=== PATIENT | female | born 1965 | race Caucasian/White ===

== ENCOUNTER 2020-07-26 11:43 | Emergency (ER) | payer OTHER, SELFPAY ==
--- NOTE | ~2020-07-26 | CT_ITS ---
EXAMINATION: CT ABDOMEN AND PELVIS WITHOUT CONTRAST CLINICAL INFORMATION: Right flank pain. Kidney stones. COMPARISON: CT abdomen/pelvis dated 05/09/2018. TECHNIQUE: Multidetector volumetric imaging was performed from the superior aspect of the liver through the pubic symphysis. Sagittal and coronal reformatted images were obtained on the technologist's workstation. This CT examination was performed using dose optimization techniques as appropriate, variously including the following: *Automated exposure control *Adjustment of mA and/or kV according to patient size (this includes techniques or standardized protocols for targeted exams where dose is matched to indication/reason for exam; i.e. extremities or head) *Use of iterative reconstruction technique DLP: 748 mGy-cm FINDINGS: LUNG BASES: The visualized lung bases are unremarkable. LIVER, GALLBLADDER, AND BILIARY TREE: The liver is normal in size and shape. Parenchymal hypoattenuation, consistent with steatosis. Mild fatty sparing adjacent to the gallbladder fossa. No focal hepatic lesion or biliary ductal dilatation is present. The gallbladder is unremarkable with no evidence of radiopaque gallstones, gallbladder wall thickening, or obvious pericholecystic inflammatory changes. PANCREAS: Unremarkable. SPLEEN: Unremarkable. ADRENAL GLANDS: Unremarkable. KIDNEYS AND URETERS: The kidneys are normal in size, shape, and attenuation. There is mild right-sided hydroureteronephrosis with minimal periureteral stranding. No right-sided renal or ureteral stone is identified. There is a stable phlebolith within the right pelvis adjacent to the right ureter distally. Findings may indicate a recently passed renal stone. No left-sided hydronephrosis or hydroureter. No left-sided renal or ureteral stone. BLADDER: Unremarkable. No associated calcification. No soft tissue mass or associated inflammatory change. GASTROINTESTINAL TRACT: Colonic diverticulosis. Circumferential wall thickening of the rectosigmoid junction within the posterior central pelvis with mild adjacent fat stranding, consistent with acute diverticulitis. No evidence of perforation or abscess formation. No small- or large-bowel obstruction. Unremarkable appendix. PERITONEAL CAVITY: No intra-abdominal free air or free fluid. No intra-abdominal mass or organized fluid collection/abscess formation. ABDOMINAL WALL: No significant hernia is appreciated. LYMPH NODES: No significant lymphadenopathy. VASCULAR: No abdominal aortic dilatation. Scattered atherosclerotic calcifications. Unremarkable IVC. PELVIC VISCERA: The uterus and adnexa are unremarkable. OSSEOUS STRUCTURES: Unremarkable. CT/CT abdomen pelvis wo con IMPRESSION: 1. Colonic diverticulosis with evidence of acute diverticulitis within the posterior central pelvis. Associated bowel wall thickening and mild adjacent inflammatory change. No evidence of perforation or abscess formation. 2. Mild right-sided hydroureteronephrosis with minimal periureteral stranding. No right-sided renal or ureteral stone. No urinary bladder stone. Findings may indicate a recently passed right-sided renal stone. No left-sided hydronephrosis or nephrolithiasis. 3. Hepatic steatosis.
[2020-07-26 11:53] VITALS: BP 200/73; PULSE 81; RESP 18; TEMP 37.1; O2SAT 97; BMI 31.3
[2020-07-26] MEDS: 0.9 % Sodium Chloride 1,000 ML 999 ML IVCONT (13:03)
[2020-07-26 13:09] LABS: MANUAL DIFF FLAG NO
[2020-07-26 13:10] LABS: Basophils Percent Auto 0.2 % (0-2); Eosinophils Absolute Auto 0.1 X10*3/uL (0.0-0.4); Eosinophils Percent Auto 0.9 % (0-4); Hematocrit 40.8 % (37-47); Hemoglobin 13.7 g/dl (12.0-16.0); Imm Gran Abs Auto 0.05 X10*3/uL (0.00-0.03); Imm Gran Pct Auto 0.3 % (0.0-0.4); Lymphocytes Absolute Auto 1.2 X10*3/uL (1.2-4.9); Lymphocytes Percent Auto 8.4 % (20-40); Mean Corpuscular HGB Conc 33.6 g/dl (31.0-35.0); Mean Corpuscular Hemoglobin 30.2 pg (27.0-33.0); Mean Corpuscular Volume 89.9 fL (80-98); Mean Platelet Volume 10.1 fL (9.4-12.3); Monocytes Absolute Auto 0.8 X10*3/uL (0.1-1.2); Monocytes Percent Auto 5.7 % (2-11); Neutrophils Absolute Auto 12.1 X10*3/uL (2.0-8.3); Neutrophils Percent Auto 84.5 % (45-73); Platelet Count 248 X10*3/uL (160-400); Red Blood Count 4.54 X10*6/uL (4.20-5.50); Red Cell Distribution Width 12.9 % (11.0-16.0); White Blood Count 14.3 X10*3/uL (4.8-10.8)
[2020-07-26 13:13] LABS: Glucose Urine UA NEG (NEG); Leukocyte Esterase Urine NEG (NEG); Nitrite Urine POS (NEG); PH 7.5 (5.0-8.0); Specific Gravity - Urine 1.025 (1.005-1.025); UACC Culture Trigger YES; Urine Blood 3+ (NEG); Urine Ketones NEG (NEG); Urine Protein 2+ MG/DL (NEG-TRACE)
--- NOTE | 2020-07-26 13:13 | ED.FEMALEGU ---
HPI - Female Genitourinary General Chief complaint: Urogenital-Female Stated complaint: kidney pain Time Seen by Provider: 07/26/20 12:41 Source: patient Mode of arrival: ambulatory Limitations: no limitations History of Present Illness HPI Narrative: 55 y/o female with history of GERD, HLD, hx Strep throat w/ Strep bacteremia in 2018, osteoarthritis, hx kidney stones 30 years ago presenting with acute onset of difficulty voiding, bladder pressure and right sided kidney pain since last night. She states her urine is dark and slightly pink. She has only been able to void dribbles. She denies dysuria, abdominal pain, nausea or vomiting. No fever or chills, no chest pain. She gets SOB when the pain is severe. MD elicited complaint: flank pain and difficulty urinating Onset (ago): day(s) (1) Location of symptoms: suprapubic Severity: severe Female Urogenital Radiation: Suprapubic and R Flank Severity scale (1-10): 8 Quality of pain: dull and aching Consistency: intermittent and progressively worsening Vaginal discharge: none Vaginal bleeding: none Urinary symptoms: Urgency, Frequency, Difficulty Urinating and Flank Pain Exacerbating factors: none Relieving factors: urination Associated symptoms: shortness of breath Treatment prior to arrival: none Sexual activity: No Patient : No Related Data Previous Rx's Medication Instructions Recorded ciprofloxacin HCl 500 mg PO BID #20 tab 07/26/20 hydrocodone-acetaminophen 1 tab PO Q4-6H PRN #12 tab 07/26/20 metronidazole [Flagyl] 500 mg PO BID #20 tab 07/26/20 ondansetron HCl [Zofran] 4 mg PO Q8H PRN #10 tab 07/26/20 Allergies Allergy/AdvReac Type Severity Reaction Status Date / Time No Known Allergies Allergy Verified 07/26/20 12:03 Review of Systems Review of Systems: Constitutional: No Fever, No Chills Cardiovascular: No Chest Pain, + SOB, No Orthopnea, No Edema Respiratory: No Cough, No Sputum, No Wheezing, No dyspnea Gastrointestinal: No Nausea, No Vomiting, No Diarrhea, No abdominal Pain, No Hematochezia, No Melena Genitourinary: No Dysuria, + Urinary Frequency, + Hematuria, +Difficulty voiding Musculoskeletal: No joint pain, No Myalgias Skin: No Skin Lesions, No rash Neuro: No Weakness, No Numbness, No Dizziness, No Headache Psych: No Anxiety/Panic, No Depression Heme/Lymph: No Bruising, No Lymphadenopathy Endocrine: No Polyuria, No Polydipsia PMF Past Medical History Attestation statement: The following information was validated with the patient. Medical History (Updated 07/26/20 @ 15:28 by PRECIOUS Costa) GERD (gastroesophageal reflux disease) Hyperlipidemia Kidney stones No known health problems Osteoarthritis Streptococcal bacteremia Social History Social History Alcohol intake: never Smoking Status: Never smoker Use of substances other than those prescribed or required for medical reasons: No Advance Directives: No Advance Directives Information Provided: No Physical Exam Vital Signs: Vital Signs: Last Vital Signs Temp 98.9 F 07/26/20 14:07 Pulse 86 07/26/20 15:27 Resp 19 07/26/20 15:27 BP 163/92 H 07/26/20 15:27 Pulse Ox 97 07/26/20 15:27 Body Mass Index 31.3 Appearance: Alert. Oriented X3. Appears uncomfortable. Eyes: Pupils equal, round and reactive to light. ENT: Pharynx normal. Neck: Normal inspection. Neck supple. CVS: Normal heart rate and rhythm. Pulses normal. Respiratory: No respiratory distress. Breath sounds normal. Abdomen: Soft, obese, suprapubic tenderness, normal BS x4 Back: normal inspection, right sided CVA tenderness Skin: Skin warm and dry. Normal skin color. Normal skin turgor. No rashes. Extremities: No lower extremity edema. Neuro: Oriented X 3. No motor deficit. No sensory deficit. Course Course Course Narrative: 55 y/o female presenting wt 8/10 suprapubic pain/fullness, difficulty voiding and right sided flank pain since last night. Concern for kidney stones vs UTI vs pyelonephritis. No fever or tachycardia on arrival but BP significantly elevatged, likely pain related. She denies headacahe, chest pain or vision changes. Will get UA, CT scan, PVR. IVF, Toradol and Morphine ordered for now given patient's discomfort. Will reassess. Reevaluation(s) Reevaluation #1: WBC 14.3. UA with nitrites consistent with infection. Rocephin and Pyridium ordered. Not septic. BP significantly improved with pain control. Patient is feeling better. Reevaluation #2: CT showing diverticulitis within the posterior central pelvis which can explain patient's pelvic fullness. Also question of recently passed right sided kidney stone with mild hydroureteronephrosis w/ minimal periuretral stranding. Results were discussed with the patient. Will give PO trial and reassess d/c home vs admission. Reevaluation #3: She is tolerating PO and reports only mild intermittent abdominal discomfort. She has been counseled on management and warning signs to prompt return to the ER. Stable for discharge with PO abx and pain control. MDM - Female Genitourinary Lab Data Result diagrams: 07/26/20 13:02 07/26/20 13:01 Labs: Lab Results 07/26/20 07/26/20 07/26/20 Range/Units 13: 13: 13:02 WBC 14.3 H (4.8-10.8) X10*3/uL RBC 4.54 (4.20-5.50) X10*6/uL Hgb 13.7 (12.0-16.0) g/dl Hct 40.8 (37-47) % MCV 89.9 (80-98) fL MCH 30.2 (27.0-33.0) pg MCHC 33.6 (31.0-35.0) g/dl RDW 12.9 (11.0-16.0) % Plt Count 248 (160-400) X10*3/uL MPV 10.1 (9.4-12.3) fL Immature Gran % (Auto) 0.3 (0.0-0.4) % Neut % (Auto) 84.5 H (45-73) % Lymph % (Auto) 8.4 L (20-40) % [place] % (Auto) 5.7 (2-11) % Eos % (Auto) 0.9 (0-4) % Baso % (Auto) 0.2 (0-2) % Lymph # (Auto) 1.2 (1.2-4.9) X10*3/uL [place] # (Auto) 0.8 (0.1-1.2) X10*3/uL Eos # (Auto) 0.1 (0.0-0.4) X10*3/uL Baso # (Auto) 0.0 (0.0-0.2) X10*3/uL Abs Immat Gran (auto) 0.05 H (0.00-0.03) X10*3/uL Absolute Neuts (auto) 12.1 H (2.0-8.3) X10*3/uL Absolute Nucleated RBC 0.000 (0.0-0.012) X10*3/uL Nucleated RBC % (auto) 0.0 (0.0-0.2) /100WBC Hold Blue Top SEE NOTE Sodium 140 (135-145) mmol/L Potassium 4.2 (3.3-5.1) mmol/L Chloride 107 (96-108) mmol/L Carbon Dioxide 27 (22-29) mmol/L Anion Gap 10 L (12-20) BUN 16 (9-16) mg/dL Creatinine 0.95 (0.5-1.4) mg/dL Estim Creat Clear Calc 79.1 Estimated GFR > 60 Random Glucose 128 H (60-115) mg/dL Calcium 9.2 (8.4-10.2) mg/dL Magnesium 2.5 (1.6-2.6) mg/dL Total Bilirubin 0.5 (0.0-1.0) mg/dL Direct Bilirubin < 0.2 (0.0-0.5) mg/dL AST 16 (5-31) U/L ALT 20 (0-31) U/L Alkaline Phosphatase 80 (39-117) U/L Total Protein 7.3 (6.5-8.0) g/dL Albumin 4.5 (3.5-5.0) g/dL Urine Color Urine Appearance Urine pH (5.0-8.0) Ur Specific [place] (1.005-1.025) Urine Protein (NEG-TRACE) MG/DL Urine Glucose (UA) (NEG) MG/DL Urine Ketones (NEG) MG/DL Urine Blood (NEG) Urine Nitrite (NEG) Ur Leukocyte Esterase (NEG) Urine RBC (0) /HPF Urine WBC (0-4) /HPF Ur Squamous Epith Cells /LPF Urine Bacteria /LPF 07/26/20 Range/Units 13:02 WBC (4.8-10.8) X10*3/uL RBC (4.20-5.50) X10*6/uL Hgb (12.0-16.0) g/dl Hct (37-47) % MCV (80-98) fL MCH (27.0-33.0) pg MCHC (31.0-35.0) g/dl RDW (11.0-16.0) % Plt Count (160-400) X10*3/uL MPV (9.4-12.3) fL Immature Gran % (Auto) (0.0-0.4) % Neut % (Auto) (45-73) % Lymph % (Auto) (20-40) % [place] % (Auto) (2-11) % Eos % (Auto) (0-4) % Baso % (Auto) (0-2) % Lymph # (Auto) (1.2-4.9) X10*3/uL [place] # (Auto) (0.1-1.2) X10*3/uL Eos # (Auto) (0.0-0.4) X10*3/uL Baso # (Auto) (0.0-0.2) X10*3/uL Abs Immat Gran (auto) (0.00-0.03) X10*3/uL Absolute Neuts (auto) (2.0-8.3) X10*3/uL Absolute Nucleated RBC (0.0-0.012) X10*3/uL Nucleated RBC % (auto) (0.0-0.2) /100WBC Hold Blue Top Sodium (135-145) mmol/L Potassium (3.3-5.1) mmol/L Chloride (96-108) mmol/L Carbon Dioxide (22-29) mmol/L Anion Gap (12-20) BUN (9-16) mg/dL Creatinine (0.5-1.4) mg/dL Estim Creat Clear Calc Estimated GFR Random Glucose (60-115) mg/dL Calcium (8.4-10.2) mg/dL Magnesium (1.6-2.6) mg/dL Total Bilirubin (0.0-1.0) mg/dL Direct Bilirubin (0.0-0.5) mg/dL AST (5-31) U/L ALT (0-31) U/L Alkaline Phosphatase (39-117) U/L Total Protein (6.5-8.0) g/dL Albumin (3.5-5.0) g/dL Urine Color PINK Urine Appearance HAZY Urine pH 7.5 (5.0-8.0) Ur Specific [place] 1.025 (1.005-1.025) Urine Protein 2+ H (NEG-TRACE) MG/DL Urine Glucose (UA) NEG (NEG) MG/DL Urine Ketones NEG (NEG) MG/DL Urine Blood 3+ H (NEG) Urine Nitrite POS H (NEG) Ur Leukocyte Esterase NEG (NEG) Urine RBC 76-150 H (0) /HPF Urine WBC 10-14 H (0-4) /HPF Ur Squamous Epith Cells 1+ /LPF Urine Bacteria 2+ /LPF Discharge Plan Discharge Clinical Impression: Diverticulitis UTI (urinary tract infection) Qualifiers: Urinary tract infection type: acute cystitis Hematuria presence: with hematuria Qualified Code(s): N30.01 - Acute cystitis with hematuria Patient Disposition: Home, Self-Care Instructions: Diverticulitis (ED), Urinary Tract Infection in Women (ED), Diverticulitis Diet (ED) Additional Instructions: Take the prescribed antibiotics as directed. Take the pain medication as needed for pain. Do not drive after taking. Stay hydrated and drink plenty of water. Follow up with your doctor next week. Follow up with the GI doctor next week. If your pain worsens or if you are unable to tolerate food or drink then come back to the ER for further evaluation. Prescriptions: New ciprofloxacin HCl 500 mg tablet 500 mg PO BID Qty: 20 RF: 0 metronidazole [Flagyl] 500 mg tablet 500 mg PO BID Qty: 20 RF: 0 ondansetron HCl [Zofran] 4 mg tablet 4 mg PO Q8H PRN (Reason: nausea and vomiting) Qty: 10 RF: 0 hydrocodone-acetaminophen 5-325 mg tablet 1 tab PO Q4-6H PRN (Reason: pain) Qty: 12 RF: 0 Referrals: Jolanta Matson MD [Physician] - 3 days (diverticulitis)
[2020-07-26 13:29] LABS: Appearance Urine HAZY; Color Urine PINK
[2020-07-26] MEDS: Morphine Sulfate 4 MG/ML CARTRIDGE IVPUSH (13:30)
[2020-07-26 13:31] LABS: Bacteria Urine 2+ /LPF; Squamous Epithelial Cell Urine 1+ /LPF
[2020-07-26 13:32] LABS: Alanine Aminotransferase 20 U/L (0-31); Albumin Level 4.5 g/dL (3.5-5.0); Alkaline Phosphatase 80 U/L (39-117); Anion Gap 10 (12-20); Aspartate Amino Transferase 16 U/L (5-31); Bilirubin Direct < 0.2 mg/dL (0.0-0.5); Bilirubin Total 0.5 mg/dL (0.0-1.0); Blood Urea Nitrogen 16 mg/dL (9-16); Calcium 9.2 mg/dL (8.4-10.2); Carbon Dioxide 27 mmol/L (22-29); Chloride 107 mmol/L (96-108); Creatinine Clr Calc Pharmacy 79.1; Estimated Glomerular Filt Rate > 60; Glucose Random 128 mg/dL (60-115); Magnesium 2.5 mg/dL (1.6-2.6); Potassium 4.2 mmol/L (3.3-5.1); Sodium 140 mmol/L (135-145); Total Protein 7.3 g/dL (6.5-8.0)
[2020-07-26] MEDS: Ketorolac Tromethamine 30 MG/ML VIAL IVPUSH (13:32)
[2020-07-26] MEDS: Phenazopyridine HCL 100 MG TABLET PO (13:48)
[2020-07-26] MEDS: cefTRIAXone sodium 1 GM in 0.9 % Sodium Chloride 50 ML IV (13:48)
[2020-07-26 14:07] VITALS: BP 147/73; PULSE 87; RESP 19; TEMP 37.2; O2SAT 98
[2020-07-26 15:27] VITALS: BP 163/92; PULSE 86; RESP 19; O2SAT 97
[2020-07-26] MEDS: metroNIDAZOLE/NS 500 MG/100 ML PIGGYBACK 100 MG IV (15:32)
[2020-07-26] MEDS: HYDROcodone Bit/Acetam 5/325 TABLET 1 TAB PO (16:53)
== END 2020-07-26 17:16 | disposition home or self-care (01) ==
PROVIDERS: Physician Assistant; Emergency Provider Emergency Medicine Emergency Medical Services; PCP Physician Assistant Medical
DX: N30.01 Acute cystitis with hematuria (principal); K57.32 Diverticulitis of large intestine without perforation or abscess without bleeding
CPT/HCPCS: 36415; 51798; 74176; 80048; 80076; 81001; 81003; 83735; 85025; 87086; 87088; 87186; 96361; 96365; 96367; 96375; 99284; J0696; J1885; J2270

== ENCOUNTER → 2020-08-27 08:09 | Outpatient (BNVA) | payer OTHER, SELFPAY | PROVIDERS: PCP Physician Assistant Medical; Visit Provider Internal Medicine Gastroenterology | DX: Z13.89 Encounter for screening for other disorder (principal) | CPT/HCPCS: 99212 ==

== ENCOUNTER 2021-03-21 10:57 | Emergency (ER) | payer OTHER, SELFPAY ==
--- NOTE | ~2021-03-21 | CT_ITS ---
EXAMINATION: CT ABDOMEN AND PELVIS WITHOUT CONTRAST CLINICAL INFORMATION: Flank pain. Rule out kidney stone. COMPARISON: Previous CT of the abdomen and pelvis most recent July 2020 TECHNIQUE: Multidetector volumetric imaging was performed from the superior aspect of the liver through the pubic symphysis. Sagittal and coronal reformatted images were obtained on the technologist's workstation. This CT examination was performed using dose optimization techniques as appropriate, variously including the following: *Automated exposure control *Adjustment of mA and/or kV according to patient size (this includes techniques or standardized protocols for targeted exams where dose is matched to indication/reason for exam; i.e. extremities or head) *Use of iterative reconstruction technique DLP: 734 mGy-cm FINDINGS: LUNG BASES: The visualized lung bases are unremarkable. LIVER, GALLBLADDER, AND BILIARY TREE: The liver is low in attenuation suggestive of fatty infiltration. No focal hepatic lesion or biliary ductal dilatation is present. The gallbladder is unremarkable with no evidence of radiopaque gallstones, gallbladder wall thickening, or obvious pericholecystic inflammatory changes. PANCREAS: Unremarkable. SPLEEN: Unremarkable. ADRENAL GLANDS: Unremarkable. KIDNEYS AND URETERS: The kidneys are normal in size, shape, and attenuation. No hydronephrosis, hydroureter, or calculi seen. No perinephric stranding. BLADDER: Unremarkable. GASTROINTESTINAL TRACT: The small and large bowel are unremarkable. The appendix is unremarkable. ABDOMINAL WALL: No significant hernia is appreciated. LYMPH NODES: Normal. VASCULAR: Unremarkable. PELVIC VISCERA: Unremarkable. OSSEOUS STRUCTURES: Unremarkable. CT/CT abdomen pelvis wo con IMPRESSION: Fatty infiltration of the liver. Otherwise unremarkable exam. No renal stone seen.
[2021-03-21 11:27] VITALS: BP 199/109; PULSE 88; RESP 16; TEMP 36.7; O2SAT 97; BMI 32.8
--- NOTE | 2021-03-21 12:01 | PC.NURSE ---
Bladder scanned for 46ml of urine by Denise MITCHELL who perfmemed the scan numerous times to confirm value. Pt was able to provide a small urine sample which will be sent to lab.
[2021-03-21 12:19] LABS: MANUAL DIFF FLAG NO
[2021-03-21 12:20] LABS: Basophils Absolute Auto 0.1 X10*3/uL (0.0-0.2); Basophils Percent Auto 0.3 % (0-2); Eosinophils Absolute Auto 0.1 X10*3/uL (0.0-0.4); Eosinophils Percent Auto 0.7 % (0-4); Hematocrit 44.1 % (37-47); Hemoglobin 15.4 g/dl (12.0-16.0); Imm Gran Abs Auto 0.05 X10*3/uL (0.00-0.03); Imm Gran Pct Auto 0.3 % (0.0-0.4); Lymphocytes Absolute Auto 1.5 X10*3/uL (1.2-4.9); Mean Corpuscular HGB Conc 34.9 g/dl (31.0-35.0); Mean Corpuscular Hemoglobin 30.5 pg (27.0-33.0); Mean Corpuscular Volume 87.3 fL (80-98); Mean Platelet Volume 9.8 fL (9.4-12.3); Monocytes Absolute Auto 0.8 X10*3/uL (0.1-1.2); Neutrophils Percent Auto 84.7 % (45-73); Platelet Count 258 X10*3/uL (160-400); Red Blood Count 5.05 X10*6/uL (4.20-5.50); Red Cell Distribution Width 13.2 % (11.0-16.0); White Blood Count 16.5 X10*3/uL (4.8-10.8)
--- NOTE | 2021-03-21 12:22 | ED.FEMALEGU ---
HPI - Female Genitourinary General Chief complaint: Urogenital-Female Stated complaint: ?uti Time Seen by Provider: 03/21/21 12:19 History of Present Illness HPI Narrative: Patient 56-year-old female presents today with having abdominal pain in the lower abdomen. No fever no chills. Positive pain on urination. Positive blood in the urine. No cough no congestion or upper respiratory symptoms. Patient is immunized for COVID. No diaphoresis. Patient from home. Pain cramping like. Worse in the lower abdomen. Related Data Home Medications Medication Instructions Recorded Confirmed aspirin 500 mg tablet 1,000 mg PO Q4-6H PRN 08/27/20 08/27/20 lisinopril 10 mg tablet 10 mg PO DAILY 08/27/20 08/27/20 simvastatin 10 mg tablet 10 mg PO BEDTIME 08/27/20 08/27/20 topiramate 100 mg capsule 100 mg PO DAILY 08/27/20 08/27/20 sprinkle,extended release 24 hr Previous Rx's Medication Instructions Recorded hydrocodone 5 mg-acetaminophen 325 1 tab PO Q4-6H PRN #12 tab 07/26/20 mg tablet ondansetron HCl 4 mg tablet 4 mg PO Q8H PRN #10 tab 07/26/20 (Zofran) phenazopyridine 100 mg tablet 100 mg PO TID PRN 3 Days #10 tab 03/21/21 (Pyridium) sulfamethoxazole 800 1 tab PO BID 7 Days #14 tab 03/21/21 mg-trimethoprim 160 mg tablet (Bactrim DS) Allergies Allergy/AdvReac Type Severity Reaction Status Date / Time Seasonal Allergies Allergy Mild Runny Verified 08/27/20 08:09 Nose, congestion Review of Systems Review of Systems: Positive abdominal pain No fever no chills No cough no congestion or upper respiratory symptoms All systems reviewed otherwise negative PMFSH Past Medical History Attestation statement: The following information was validated with the patient. Medical History GERD (gastroesophageal reflux disease) Hyperlipidemia Kidney stones No known health problems Osteoarthritis Streptococcal bacteremia Surgical History Hx of colonoscopy Family History Family History Father Diabetes Mother Diabetes Brother Diabetes Brother Diabetes Brother Diabetes Brother Diabetes Sister Diabetes Social History Social History Household Members: Spouse, Children and Other Alcohol intake: never Patient Tobacco Use Status: Never used Tobacco Use of substances other than those prescribed or required for medical reasons: Yes Substance Use Type: Marijuana Substance Use Frequency: Occasionally Advance Directives: No Physical Exam Vital Signs: Vital Signs: Last Vital Signs Temp 98.1 F 03/21/21 11:27 Pulse 86 03/21/21 13:13 Resp 18 03/21/21 13:13 BP 181/84 H 03/21/21 13:13 Pulse Ox 98 03/21/21 13:13 Body Mass Index 32.8 Appearance: Alert. Oriented X3. No acute distress. Eyes: Pupils equal, round and reactive to light. ENT: Pharynx normal. Neck: Normal inspection. Neck supple. No lymph nodes noted. No crepitus CVS: Normal heart rate and rhythm. Pulses normal. Normal S1 and S2 Respiratory: No respiratory distress. Breath sounds normal. No Wheezing. No rales Abdomen: Soft and nontender. No rigidity. No distention. good BS x4 Skin: Skin warm and dry. Normal skin color. Normal skin turgor. Extremities: No lower extremity edema. Neurovascular intact to all extremities. No Lacerations. No Rash Neuro: Oriented X 3. No motor deficit. No sensory deficit. Moving all extermities. No slurred speech MDM - Female Genitourinary Lab Data Lab results narrative: Patient's urine grossly infected. CT scan of the abdomen showed no evidence of stone. No evidence for diverticulitis. No evidence for abscess perforation. There is no CVA tenderness is no nausea no vomiting. Will start patient on Bactrim. Will discharge patient home. Currently in stable condition. Patient is post void bladder scan showed approximately 40 cc. No evidence for retention. Result diagrams: 03/21/21 12:08 03/21/21 12:08 Labs: Lab Results 03/21/21 03/21/21 03/21/21 Range/Units 12:05 12:08 12:08 WBC 16.5 H (4.8-10.8) X10*3/uL RBC 5.05 (4.20-5.50) X10*6/uL Hgb 15.4 (12.0-16.0) g/dl Hct 44.1 (37-47) % MCV 87.3 (80-98) fL MCH 30.5 (27.0-33.0) pg MCHC 34.9 (31.0-35.0) g/dl RDW 13.2 (11.0-16.0) % Plt Count 258 (160-400) X10*3/uL MPV 9.8 (9.4-12.3) fL Immature Gran % (Auto) 0.3 (0.0-0.4) % Neut % (Auto) 84.7 H (45-73) % Lymph % (Auto) 9.0 L (20-40) % [place] % (Auto) 5.0 (2-11) % Eos % (Auto) 0.7 (0-4) % Baso % (Auto) 0.3 (0-2) % Lymph # (Auto) 1.5 (1.2-4.9) X10*3/uL [place] # (Auto) 0.8 (0.1-1.2) X10*3/uL Eos # (Auto) 0.1 (0.0-0.4) X10*3/uL Baso # (Auto) 0.1 (0.0-0.2) X10*3/uL Abs Immat Gran (auto) 0.05 H (0.00-0.03) X10*3/uL Absolute Neuts (auto) 14.0 H (2.0-8.3) X10*3/uL Absolute Nucleated RBC 0.000 (0.0-0.012) X10*3/uL Nucleated RBC % (auto) 0.0 (0.0-0.2) /100WBC Sodium 140 (135-145) mmol/L Potassium 4.4 (3.3-5.1) mmol/L Chloride 106 (96-108) mmol/L Carbon Dioxide 23 (22-29) mmol/L Anion Gap 15 (12-20) BUN 15 (9-16) mg/dL Creatinine 1.04 (0.5-1.4) mg/dL Estim Creat Clear Calc 73.3 Estimated GFR 55 Random Glucose 146 H (60-115) mg/dL Calcium 10.2 D (8.4-10.2) mg/dL Total Bilirubin 0.4 (0.0-1.0) mg/dL AST 24 D (5-31) U/L ALT 28 (0-31) U/L Alkaline Phosphatase 86 (39-117) U/L Total Protein 8.3 H (6.5-8.0) g/dL Albumin 5.1 H (3.5-5.0) g/dL Urine Color OTHER Urine Appearance HAZY Urine pH 5.5 (5.0-8.0) Ur Specific [place] 1.025 (1.005-1.025) Urine Protein 2+ H (NEG-TRACE) MG/DL Urine Glucose (UA) NEG (NEG) MG/DL Urine Ketones NEG (NEG) MG/DL Urine Blood 3+ H (NEG) Urine Nitrite POS H (NEG) Ur Leukocyte Esterase 2+ H (NEG) Urine RBC 50-75 H (0) /HPF Urine WBC 30-49 H (0-4) /HPF Urine WBC Clumps NOTED Ur Squamous Epith Cells 1+ /LPF Urine Bacteria 2+ /LPF Urine Mucus 1+ /LPF Urine Yeast /HPF Discharge Plan Discharge Clinical Impression: Urinary tract infection Patient Disposition: Home, Self-Care Instructions: Urinary Tract Infection in Women (ED) Prescriptions: New sulfamethoxazole-trimethoprim [Bactrim DS] 800-160 mg tablet 1 tab PO BID 7 Days Qty: 14 RF: 0 phenazopyridine [Pyridium] 100 mg tablet 100 mg PO TID PRN (Reason: spasm) 3 Days Qty: 10 RF: 0 No Action ondansetron HCl [Zofran] 4 mg tablet 4 mg PO Q8H PRN (Reason: nausea and vomiting) Qty: 10 RF: 0 hydrocodone-acetaminophen 5-325 mg tablet 1 tab PO Q4-6H PRN (Reason: pain) Qty: 12 RF: 0 simvastatin 10 mg tablet 10 mg PO BEDTIME RF: 0 lisinopril 10 mg tablet 10 mg PO DAILY RF: 0 topiramate 100 mg cap,sprinkle,ER 24hr dose pack 100 mg PO DAILY RF: 0 aspirin 500 mg tablet 1,000 mg PO Q4-6H PRNRF: 0
[2021-03-21 12:23] LABS: Appearance Urine HAZY; Color Urine OTHER; Glucose Urine UA NEG (NEG); Leukocyte Esterase Urine 2+ (NEG); Nitrite Urine POS (NEG); PH 5.5 (5.0-8.0); Specific Gravity - Urine 1.025 (1.005-1.025); Urine Blood 3+ (NEG); Urine Ketones NEG (NEG); Urine Protein 2+ MG/DL (NEG-TRACE)
[2021-03-21] MEDS: HYDROmorphone HCl 0.5 MG/0.5 ML SYRINGE IVPUSH (12:31)
[2021-03-21] MEDS: ondansetron HCL 4 MG/2 ML VIAL IVPUSH (12:31)
[2021-03-21] MEDS: 0.9 % Sodium Chloride 1,000 ML 999 ML IV (12:32)
[2021-03-21 12:37] LABS: RBC Urine 50-75 /HPF (0); WBC Urine 30-49 /HPF (0-4)
[2021-03-21 12:38] LABS: Bacteria Urine 2+ /LPF; Mucus Urine 1+ /LPF; Squamous Epithelial Cell Urine 1+ /LPF; WBC Clumps Urine NOTED
[2021-03-21 12:59] LABS: Alanine Aminotransferase 28 U/L (0-31); Albumin Level 5.1 g/dL (3.5-5.0); Alkaline Phosphatase 86 U/L (39-117); Anion Gap 15 (12-20); Aspartate Amino Transferase 24 U/L (5-31); Bilirubin Total 0.4 mg/dL (0.0-1.0); Blood Urea Nitrogen 15 mg/dL (9-16); Calcium 10.2 mg/dL (8.4-10.2); Carbon Dioxide 23 mmol/L (22-29); Chloride 106 mmol/L (96-108); Creatinine Clr Calc Pharmacy 73.3; Estimated Glomerular Filt Rate 55; Glucose Random 146 mg/dL (60-115); Potassium 4.4 mmol/L (3.3-5.1); Sodium 140 mmol/L (135-145); Total Protein 8.3 g/dL (6.5-8.0)
[2021-03-21 13:13] VITALS: BP 181/84; PULSE 86; RESP 18; O2SAT 98
[2021-03-21] MEDS: Sulfamethox/Trimeth 800/160 TABLET 1 TAB PO (14:16)
[2021-03-21] MEDS: Ondansetron ODT 4 MG TAB.RAPDIS TRANSLINGU (14:16)
== END 2021-03-21 14:26 | disposition home or self-care (01) ==
PROVIDERS: Emergency Provider Emergency Medicine Emergency Medical Services
DX: N39.0 Urinary tract infection, site not specified (principal); Z79.899 Other long term (current) drug therapy; Z79.82 Long term (current) use of aspirin
CPT/HCPCS: 36415; 51798; 74176; 80053; 81001; 85025; 96361; 96374; 96375; 99284; 99285; J1170; J2405

== ENCOUNTER 2022-06-29 12:14 | Emergency (ER) | payer OTHER, SELFPAY ==
--- NOTE | ~2022-06-29 | XR_ITS ---
EXAMINATION: XR LUMBAR SPINE CLINICAL INFORMATION: Back pain COMPARISON: None TECHNIQUE: Frontal lateral and coned-down L5-S1 frontal lateral FINDINGS: Five [id number] lumbar vertebrae were identified maintaining normal height and alignments. Narrowing of intervertebral disc spaces suggest underlying degenerative disc disease. Mild vascular calcification. Paravertebral soft tissues are unremarkable. There are radiolucencies, most likely superimposed bowel gas.. No radiographic evidence of osteolytic or osteoblastic lesions. XR/XR lumbar spine 2-3V IMPRESSION: * No fracture. * Bone alignments are satisfactory. * Mild narrowing of intervertebral disc spaces suggest underlying degenerative disc disease.
--- NOTE | ~2022-06-29 | XR_ITS ---
EXAMINATION: XR CHEST CLINICAL INFORMATION: Chest pain COMPARISON: Chest x-ray 05/09/2018 TECHNIQUE: Frontal view of the chest was obtained. 2:07 PM FINDINGS: No significant abnormality is noted involving the heart, lungs, mediastinum, bony thorax or soft tissues. XR/XR chest 1V IMPRESSION: Unremarkable examination.
--- NOTE | ~2022-06-29 | CT_ITS ---
EXAMINATION: CT ANGIOGRAM OF THE CHEST WITH AND WITHOUT CONTRAST (CT PULMONARY ANGIOGRAM FOR PE) CLINICAL INFORMATION: Reason for Exam ? PE COMPARISON: CTA chest 07/04/2010, chest x-ray earlier today TECHNIQUE: Prior to contrast administration, noncontrast localization images were obtained. Subsequently, multidetector volumetric imaging was performed from the thoracic inlet to below the diaphragms following the administration of 65 mL Omnipaque 350 intravenous contrast. No contrast reaction reported Sagittal, coronal, and MIP oblique sagittal reformatted images were obtained on the CT workstation, uploaded to PACS, and reviewed. This CT examination was performed using dose optimization techniques as appropriate, variously including the following: *Automated exposure control *Adjustment of mA and/or kV according to patient size (this includes techniques or standardized protocols for targeted exams where dose is matched to indication/reason for exam; i.e. extremities or head) *Use of iterative reconstruction technique Total exam dose-length product 533 mGy-cm FINDINGS: QUALITY OF STUDY/CONTRAST BOLUS: Satisfactory. PULMONARY ARTERIES: No central or segmental pulmonary emboli. THORACIC AORTA: No aneurysm or dissection. LUNG: No focal consolidation, nodules or masses. PLEURA: No pleural effusion or pneumothorax. MEDIASTINUM: Normal heart size. No pericardial effusion. No hilar or mediastinal lymphadenopathy. No evidence of septal bowing or right heart strain. CORONARY ARTERY CALCIFICATION: None visualized on this study. CHEST WALL/AXILLA: No axillary or internal mammary lymphadenopathy. OSSEOUS STRUCTURES: No acute or suspicious osseous abnormality. UPPER ABDOMEN: Unremarkable. No reflux of contrast into the hepatic veins to suggest elevated right heart pressures. CT/CT angio chest PE protocol IMPRESSION: No evidence of pulmonary emboli VTE: negative
--- NOTE | ~2022-06-29 | XR_ITS ---
EXAMINATION: XR THORACIC SPINE CLINICAL INFORMATION: Back pain. COMPARISON: None TECHNIQUE: 2 views of the thoracic spine were obtained. FINDINGS: Thoracic vertebrae have normal height and alignment. No fracture or bone destruction. Multilevel mild to moderate degenerative spondylosis of vertebral endplate spurs thoracic spine with disc space height narrowing. XR/XR thoracic spine 3V IMPRESSION: 1. No acute abnormality. 2. Degenerative spondylosis of thoracic spine.
[2022-06-29 13:43] VITALS: BP 156/84; PULSE 64; RESP 18; TEMP 36.7; O2SAT 98; BMI 37.1
--- NOTE | 2022-06-29 13:48 | ED_ITS ---
HPI - Chest Pain General Chief Complaint: Chest Pain Stated Complaint: Slight chest pain/back pain sent by emily Time Seen by Provider: 06/29/22 14:53 Related Data Home Medications Medication Instructions Recorded Confirmed aspirin 500 mg tablet 1,000 mg PO Q4-6H PRN 08/27/20 08/27/20 lisinopril 10 mg tablet 10 mg PO DAILY 08/27/20 08/27/20 simvastatin 10 mg tablet 10 mg PO BEDTIME 08/27/20 08/27/20 topiramate 100 mg capsule 100 mg PO DAILY 08/27/20 08/27/20 sprinkle,extended release 24 hr Previous Rx's Medication Instructions Recorded hydrocodone 5 mg-acetaminophen 325 1 tab PO Q4-6H PRN pain #12 tabs 07/26/20 mg tablet ondansetron HCl 4 mg tablet 4 mg PO Q8H PRN nausea and 07/26/20 (Zofran) vomiting #10 tabs phenazopyridine 100 mg tablet 100 mg PO TID PRN spasm 3 days #10 03/21/21 (Pyridium) tabs sulfamethoxazole 800 1 tab PO BID 7 days #14 tabs 03/21/21 mg-trimethoprim 160 mg tablet (Bactrim DS) oxycodone 5 mg capsule 5 mg PO Q8H PRN pain #12 caps 06/29/22 Allergies Allergy/AdvReac Type Severity Reaction Status Date / Time Seasonal Allergies Allergy Mild Runny Verified 08/27/20 08:09 Nose, congestion PMFSH Past Medical History Medical History GERD (gastroesophageal reflux disease) Hyperlipidemia Kidney stones No known health problems Osteoarthritis Streptococcal bacteremia Surgical History Hx of colonoscopy Family History Family History Father Diabetes Mother Diabetes Brother Diabetes Brother Diabetes Brother Diabetes Brother Diabetes Sister Diabetes Social History Social History Household Members: Spouse, Children and Other Alcohol intake: never Patient Tobacco Use Status: Never used Tobacco Substance Use Type: Marijuana Physical Exam Vital Signs: Vital Signs: Last Vital Signs Temp 97.9 F 06/29/22 16:28 Pulse 67 06/29/22 16:28 Resp 18 06/29/22 16:28 BP 153/71 H 06/29/22 16:28 Pulse Ox 98 06/29/22 16:28 O2 Del Method 06/29/22 16:28 BMI result Body Mass Index 37.1 Course Course Course Narrative: RME: Patient presents to the ED For back for weeks and than this morning had slight chest pain. patient states back pain on movement. Thoracaic/lumbar spine tednerness. patient denies chest pain ripping to the back, leg swelling, calf pain, fever, or chills. labs, EKG, xrays ordered Medications Administered Discontinued Medications Generic Name Dose Route Start Last Admin Trade Name Freq PRN Reason Stop Dose Admin Iohexol 100 ml 06/29/22 16:25 06/29/22 16:25 Iohexol 350 Mg/Ml 100 Ml Infus..Btl IV 06/29/22 16:26 65 ml ONCE ONE Administration Medical Decision Making Lab Data 06/29/22 13:56 06/29/22 13:56 Labs: Lab Results 06/29/22 06/29/22 06/29/22 Range/Units 13:56 13:56 13:56 WBC 10.0 (4.8-10.8) X10*3/uL RBC 4.41 (4.20-5.50) X10*6/uL Hgb 13.0 (12.0-16.0) g/dl Hct 38.9 (37.0-47.0) % MCV 88.2 (80.0-98.0) fL MCH 29.5 (27.0-33.0) pg MCHC 33.4 (31.0-35.0) g/dl RDW 13.2 (11.0-16.0) % Plt Count 218 (160-400) X10*3/uL MPV 10.0 (9.4-12.3) fL Immature Gran % (Auto) 0.4 (0.0-0.4) % Neut % (Auto) 64.6 (45-73) % Lymph % (Auto) 23.8 (20-40) % [place] % (Auto) 5.2 (2-11) % Eos % (Auto) 5.5 H (0-4) % Baso % (Auto) 0.5 (0-2) % Lymph # (Auto) 2.4 (1.2-4.9) X10*3/uL [place] # (Auto) 0.5 (0.1-1.2) X10*3/uL Eos # (Auto) 0.6 H (0.0-0.4) X10*3/uL Baso # (Auto) 0.1 (0.0-0.2) X10*3/uL Abs Immat Gran (auto) 0.04 H (0.00-0.03) X10*3/uL Absolute Neuts (auto) 6.5 (2.0-8.3) x10*3/uL Absolute Nucleated RBC 0.000 (0.0-0.012) X10*3/uL Nucleated RBC % (auto) 0.0 (0.0-0.2) /100WBC PT 12.0 (10.0-13.1) SEC INR 1.0 (0.9-1.1) APTT 27.0 (26.0-36.4) SEC Sodium 140 (135-145) mmol/L Potassium 4.1 (3.3-5.1) mmol/L Chloride 109 H (96-108) mmol/L Carbon Dioxide 24 (22-29) mmol/L Anion Gap 11 L (12-20) BUN 14 (9-16) mg/dL Creatinine 0.88 (0.5-1.4) mg/dL Estim Creat Clear Calc 88.1 Estimated GFR > 60 Random Glucose 145 H (60-115) mg/dL Calcium 9.0 D (8.4-10.2) mg/dL Total Bilirubin 0.3 (0.0-1.0) mg/dL AST 12 (5-31) U/L ALT 17 (0-31) U/L Alkaline Phosphatase 76 (39-117) U/L Troponin I High Sens (<3.5-17.0) ng/L B-Natriuretic Peptide (<100) pg/mL Total Protein 6.9 (6.5-8.0) g/dL Albumin 4.3 (3.5-5.0) g/dL Urine Color Urine Appearance Urine pH (5.0-9.0) Ur Specific [place] (1.005-1.025) Urine Protein (Neg-Trace) mg/dL Urine Glucose (UA) (Negative) mg/dL Urine Ketones (Negative) mg/dL Urine Blood (Negative) Urine Nitrite (Negative) Ur Leukocyte Esterase (Negative) Urine RBC (0-2) /HPF Urine WBC (0-5) /HPF Ur Squamous Epith Cells (0-2) /HPF Urine Bacteria (None Seen) Hyaline Casts (0-2) /LPF 06/29/22 06/29/22 06/29/22 Range/Units 13:56 13:56 15:04 WBC (4.8-10.8) X10*3/uL RBC (4.20-5.50) X10*6/uL Hgb (12.0-16.0) g/dl Hct (37.0-47.0) % MCV (80.0-98.0) fL MCH (27.0-33.0) pg MCHC (31.0-35.0) g/dl RDW (11.0-16.0) % Plt Count (160-400) X10*3/uL MPV (9.4-12.3) fL Immature Gran % (Auto) (0.0-0.4) % Neut % (Auto) (45-73) % Lymph % (Auto) (20-40) % [place] % (Auto) (2-11) % Eos % (Auto) (0-4) % Baso % (Auto) (0-2) % Lymph # (Auto) (1.2-4.9) X10*3/uL [place] # (Auto) (0.1-1.2) X10*3/uL Eos # (Auto) (0.0-0.4) X10*3/uL Baso # (Auto) (0.0-0.2) X10*3/uL Abs Immat Gran (auto) (0.00-0.03) X10*3/uL Absolute Neuts (auto) (2.0-8.3) x10*3/uL Absolute Nucleated RBC (0.0-0.012) X10*3/uL Nucleated RBC % (auto) (0.0-0.2) /100WBC PT (10.0-13.1) SEC INR (0.9-1.1) APTT (26.0-36.4) SEC Sodium (135-145) mmol/L Potassium (3.3-5.1) mmol/L Chloride (96-108) mmol/L Carbon Dioxide (22-29) mmol/L Anion Gap (12-20) BUN (9-16) mg/dL Creatinine (0.5-1.4) mg/dL Estim Creat Clear Calc Estimated GFR Random Glucose (60-115) mg/dL Calcium (8.4-10.2) mg/dL Total Bilirubin (0.0-1.0) mg/dL AST (5-31) U/L ALT (0-31) U/L Alkaline Phosphatase (39-117) U/L Troponin I High Sens < 3.5 (<3.5-17.0) ng/L B-Natriuretic Peptide 24 (<100) pg/mL Total Protein (6.5-8.0) g/dL Albumin (3.5-5.0) g/dL Urine Color Yellow Urine Appearance Cloudy Urine pH 7.5 (5.0-9.0) Ur Specific [place] 1.015 (1.005-1.025) Urine Protein Negative (Neg-Trace) mg/dL Urine Glucose (UA) Negative (Negative) mg/dL Urine Ketones Negative (Negative) mg/dL Urine Blood Small (1+) H (Negative) Urine Nitrite Negative (Negative) Ur Leukocyte Esterase Negative (Negative) Urine RBC 6-10 H (0-2) /HPF Urine WBC 0-5 (0-5) /HPF Ur Squamous Epith Cells 0-2 (0-2) /HPF Urine Bacteria None Seen (None Seen) Hyaline Casts 0-2 (0-2) /LPF 06/29/22 Range/Units 16:12 WBC (4.8-10.8) X10*3/uL RBC (4.20-5.50) X10*6/uL Hgb (12.0-16.0) g/dl Hct (37.0-47.0) % MCV (80.0-98.0) fL MCH (27.0-33.0) pg MCHC (31.0-35.0) g/dl RDW (11.0-16.0) % Plt Count (160-400) X10*3/uL MPV (9.4-12.3) fL Immature Gran % (Auto) (0.0-0.4) % Neut % (Auto) (45-73) % Lymph % (Auto) (20-40) % [place] % (Auto) (2-11) % Eos % (Auto) (0-4) % Baso % (Auto) (0-2) % Lymph # (Auto) (1.2-4.9) X10*3/uL [place] # (Auto) (0.1-1.2) X10*3/uL Eos # (Auto) (0.0-0.4) X10*3/uL Baso # (Auto) (0.0-0.2) X10*3/uL Abs Immat Gran (auto) (0.00-0.03) X10*3/uL Absolute Neuts (auto) (2.0-8.3) x10*3/uL Absolute Nucleated RBC (0.0-0.012) X10*3/uL Nucleated RBC % (auto) (0.0-0.2) /100WBC PT (10.0-13.1) SEC INR (0.9-1.1) APTT (26.0-36.4) SEC Sodium (135-145) mmol/L Potassium (3.3-5.1) mmol/L Chloride (96-108) mmol/L Carbon Dioxide (22-29) mmol/L Anion Gap (12-20) BUN (9-16) mg/dL Creatinine (0.5-1.4) mg/dL Estim Creat Clear Calc Estimated GFR Random Glucose (60-115) mg/dL Calcium (8.4-10.2) mg/dL Total Bilirubin (0.0-1.0) mg/dL AST (5-31) U/L ALT (0-31) U/L Alkaline Phosphatase (39-117) U/L Troponin I High Sens < 3.5 (<3.5-17.0) ng/L B-Natriuretic Peptide (<100) pg/mL Total Protein (6.5-8.0) g/dL Albumin (3.5-5.0) g/dL Urine Color Urine Appearance Urine pH (5.0-9.0) Ur Specific [place] (1.005-1.025) Urine Protein (Neg-Trace) mg/dL Urine Glucose (UA) (Negative) mg/dL Urine Ketones (Negative) mg/dL Urine Blood (Negative) Urine Nitrite (Negative) Ur Leukocyte Esterase (Negative) Urine RBC (0-2) /HPF Urine WBC (0-5) /HPF Ur Squamous Epith Cells (0-2) /HPF Urine Bacteria (None Seen) Hyaline Casts (0-2) /LPF Discharge Plan Discharge Clinical Impression: Chest wall pain Patient Disposition: Home, Self-Care Instructions: Chest Wall Pain (ED) Prescriptions: New oxycodone 5 mg capsule 5 mg PO Q8H PRN (Reason: pain) Qty: 12 0RF Rx Instructions: Partial Fill upon patient request. No Action ondansetron HCl [Zofran] 4 mg tablet 4 mg PO Q8H PRN (Reason: nausea and vomiting) Qty: 10 0RF hydrocodone-acetaminophen 5-325 mg tablet 1 tab PO Q4-6H PRN (Reason: pain) Qty: 12 0RF Rx Instructions: for 3 days sulfamethoxazole-trimethoprim [Bactrim DS] 800-160 mg tablet 1 tab PO BID 7 Days Qty: 14 0RF phenazopyridine [Pyridium] 100 mg tablet 100 mg PO TID PRN (Reason: spasm) 3 Days Qty: 10 0RF simvastatin 10 mg tablet 10 mg PO BEDTIME lisinopril 10 mg tablet 10 mg PO DAILY topiramate 100 mg cap,sprinkle,ER 24hr dose pack 100 mg PO DAILY aspirin 500 mg tablet 1,000 mg PO Q4-6H PRN Rx Instructions: do not exceed 4 doses per 24 hrs Referrals: Marsha Cisneros MD [Primary Care Provider] - 2 days Interventions: ED Discharge Assessment Last Done: 06/29/22 19:04 Discharge Date/Time: 06/29/22 19:04
[2022-06-29 14:12] LABS: MANUAL DIFF FLAG NO
[2022-06-29 14:15] LABS: Basophils Absolute Auto 0.1 X10*3/uL (0.0-0.2); Basophils Percent Auto 0.5 % (0-2); Eosinophils Absolute Auto 0.6 X10*3/uL (0.0-0.4); Eosinophils Percent Auto 5.5 % (0-4); Hematocrit 38.9 % (37.0-47.0); Imm Gran Abs Auto 0.04 X10*3/uL (0.00-0.03); Imm Gran Pct Auto 0.4 % (0.0-0.4); Lymphocytes Absolute Auto 2.4 X10*3/uL (1.2-4.9); Lymphocytes Percent Auto 23.8 % (20-40); Mean Corpuscular HGB Conc 33.4 g/dl (31.0-35.0); Mean Corpuscular Hemoglobin 29.5 pg (27.0-33.0); Mean Corpuscular Volume 88.2 fL (80.0-98.0); Monocytes Absolute Auto 0.5 X10*3/uL (0.1-1.2); Monocytes Percent Auto 5.2 % (2-11); Neutrophils Absolute Auto 6.5 x10*3/uL (2.0-8.3); Neutrophils Percent Auto 64.6 % (45-73); Platelet Count 218 X10*3/uL (160-400); Red Blood Count 4.41 X10*6/uL (4.20-5.50); Red Cell Distribution Width 13.2 % (11.0-16.0)
[2022-06-29 14:36] LABS: Alanine Aminotransferase 17 U/L (0-31); Albumin Level 4.3 g/dL (3.5-5.0); Alkaline Phosphatase 76 U/L (39-117); Anion Gap 11 (12-20); Aspartate Amino Transferase 12 U/L (5-31); Bilirubin Total 0.3 mg/dL (0.0-1.0); Blood Urea Nitrogen 14 mg/dL (9-16); Carbon Dioxide 24 mmol/L (22-29); Chloride 109 mmol/L (96-108); Creatinine Clr Calc Pharmacy 88.1; Estimated Glomerular Filt Rate > 60; Glucose Random 145 mg/dL (60-115); Potassium 4.1 mmol/L (3.3-5.1); Sodium 140 mmol/L (135-145); Total Protein 6.9 g/dL (6.5-8.0)
[2022-06-29 14:41] LABS: B Type Natriuretic Peptide 24 pg/mL (<100)
[2022-06-29 14:47] LABS: Troponin-I High Sensitivity < 3.5 ng/L (<3.5-17.0)
[2022-06-29 15:11] VITALS: BP 146/66; PULSE 72; RESP 20; TEMP 36.4; O2SAT 97
[2022-06-29 15:15] LABS: Appearance Urine Cloudy; Color Urine Yellow; Glucose Urine UA Negative (Negative); Leukocyte Esterase Urine Negative (Negative); Nitrite Urine Negative (Negative); PH 7.5 (5.0-9.0); Specific Gravity - Urine 1.015 (1.005-1.025); UMIC TRIGGER UACC YES; Urine Blood Small (1+) (Negative); Urine Ketones Negative (Negative); Urine Protein Negative (Neg-Trace)
--- NOTE | 2022-06-29 15:18 | ECG_ITS ---
Test Reason : CHEST PAIN Blood Pressure : / mmHG Vent. Rate : 066 BPM Atrial Rate : 066 BPM P-R Int : 214 ms QRS Dur : 092 ms QT Int : 398 ms P-R-T Axes : 007 -33 056 degrees QTc Int : 417 ms Sinus rhythm with 1st degree A-V block Left axis deviation Incomplete right bundle branch block Abnormal ECG When compared with ECG of 09-MAY-2018 21:23, [place] interval has increased Vent. rate has decreased BY 51 BPM Referred By: Rober Lopes Electronically Signed By:MEÑO DUTTON MD
--- NOTE | 2022-06-29 15:19 | ED.CHESTPAIN ---
HPI - Chest Pain General Chief Complaint: Chest Pain Stated Complaint: Slight chest pain/back pain sent by emily Time Seen by Provider: 06/29/22 14:53 Source: patient Limitations: no limitations History of Present Illness HPI narrative: Sent here by PCP because back mpain radiated to chest,she is been having back pain X 4 Weeks radiated to the chest Yesterday ,went to see PCP [facility] normal sent for berenice SANDERSON complaint: other (upper chest pain radiated to the chest) Onset (ago): week(s) Timing of current episode: constant Pain radiation: back Severity: moderate Quality: aching Risk Factors Coronary artery disease risk factors: diabetes and hypertension Thoracic aortic dissection risk factors: none Related Data Home Medications Medication Instructions Recorded Confirmed aspirin 500 mg tablet 1,000 mg PO Q4-6H PRN 08/27/20 08/27/20 lisinopril 10 mg tablet 10 mg PO DAILY 08/27/20 08/27/20 simvastatin 10 mg tablet 10 mg PO BEDTIME 08/27/20 08/27/20 topiramate 100 mg capsule 100 mg PO DAILY 08/27/20 08/27/20 sprinkle,extended release 24 hr Previous Rx's Medication Instructions Recorded hydrocodone 5 mg-acetaminophen 325 1 tab PO Q4-6H PRN pain #12 tabs 07/26/20 mg tablet ondansetron HCl 4 mg tablet 4 mg PO Q8H PRN nausea and 07/26/20 (Zofran) vomiting #10 tabs phenazopyridine 100 mg tablet 100 mg PO TID PRN spasm 3 days #10 03/21/21 (Pyridium) tabs sulfamethoxazole 800 1 tab PO BID 7 days #14 tabs 03/21/21 mg-trimethoprim 160 mg tablet (Bactrim DS) oxycodone 5 mg capsule 5 mg PO Q8H PRN pain #12 caps 06/29/22 Allergies Allergy/AdvReac Type Severity Reaction Status Date / Time Seasonal Allergies Allergy Mild Runny Verified 08/27/20 08:09 Nose, congestion Review of Systems Constitutional: Constitutional: Reports no additional constitutional complaints Eyes: Eyes: Reports no additional eye complaints Cardiovascular: Cardiovascular: Reports no additional cardiovascular complaints Respiratory: Respiratory: Reports no additional respiratory complaints PMFSH Past Medical History Medical History GERD (gastroesophageal reflux disease) Hyperlipidemia Kidney stones No known health problems Osteoarthritis Streptococcal bacteremia Surgical History Hx of colonoscopy Family History Family History Father Diabetes Mother Diabetes Brother Diabetes Brother Diabetes Brother Diabetes Brother Diabetes Sister Diabetes Social History Social History Household Members: Spouse, Children and Other Alcohol intake: never Patient Tobacco Use Status: Never used Tobacco Substance Use Type: Marijuana Physical Exam Vital Signs: Vital Signs: Last Vital Signs Temp 97.9 F 06/29/22 16:28 Pulse 67 06/29/22 16:28 Resp 18 06/29/22 16:28 BP 153/71 H 06/29/22 16:28 Pulse Ox 98 06/29/22 16:28 O2 Del Method 06/29/22 16:28 BMI result Body Mass Index 37.1 Const: General: cooperative Nutritional Appearance: average body habitus Orientation/consciousness: patient oriented x3 HEENT: Head: Yes normal to inspection General nose exam: Normal external nose present Face and sinus: Yes normal facial exam Mouth: Normal oral and palatal mucosa present Neck: Neck: Yes normal visual inspection, Yes full ROM and Yes no lymphadenopathy Thyroid: Thyroid normal Resp: Effort & Inspection: normal respiratory effort Auscultation: clear to auscultation bilaterally Cardio: Rate: regular rate Rhythm: regular rhythm GI: Inspection: Yes normal to inspection Palpation (GI): Soft to palpation, not firm, nontender and no guarding Neuro: General: patient oriented x3 Cranial nerves: Yes CN's II-XII intact bilaterally Gait exam (Neuro): Normal gait present Motor exam (neuro): 5/5 motor strength present throughout Extrem: General: Yes full ROM and Yes capillary refill normal Course Course Course Narrative: Pt presented with upper back pain radiated to the chest ,delta tropi negative,CTA chest no PE,pain ongoing for Weeks now worse,I think it is reasonable to d/c the pt home with follow up with PCP,I provided her with 3 Days ofmpain meds oxycodone Reevaluation(s) Reevaluation #1: stable unchaged Medications Administered Discontinued Medications Generic Name Dose Route Start Last Admin Trade Name Freq PRN Reason Stop Dose Admin Iohexol 100 ml 06/29/22 16:25 06/29/22 16:25 Iohexol 350 Mg/Ml 100 Ml Infus..Btl IV 06/29/22 16:26 65 ml ONCE ONE Administration Procedures EJ/Peripheral Line Arm R: Time Out Performed: Yes Skin Cleansed in Sterile Fashion: Yes Size (gauge): 20 IV Secured and Dressing Applied: Yes Patient Tolerated Procedure: well Additional Comments: Nurse unable to obtain IV,Under US guided cannulated rt brachial vein with 20 del catheter good flash good blood return Medical Decision Making Medical Decision Making MDM Narrative: pt presented with chest pain radiated to the back ,will get EKG tropi,will do ct as well Differential Diagnosis Differential Diagnoses: The differential diagnosis associated with the presentation includes ACS/dissection/PE/costocondritis/LA Admission/Observation Consideration of admission/observation: Escalation of care including admission/observation considered Lab Data [facility] Lab Attestation statement: I reviewed the patient's lab results. 06/29/22 13:56 06/29/22 13:56 Labs: Lab Results 06/29/22 06/29/22 06/29/22 Range/Units 13:56 13:56 13:56 WBC 10.0 (4.8-10.8) X10*3/uL RBC 4.41 (4.20-5.50) X10*6/uL Hgb 13.0 (12.0-16.0) g/dl Hct 38.9 (37.0-47.0) % MCV 88.2 (80.0-98.0) fL MCH 29.5 (27.0-33.0) pg MCHC 33.4 (31.0-35.0) g/dl RDW 13.2 (11.0-16.0) % Plt Count 218 (160-400) X10*3/uL MPV 10.0 (9.4-12.3) fL Immature Gran % (Auto) 0.4 (0.0-0.4) % Neut % (Auto) 64.6 (45-73) % Lymph % (Auto) 23.8 (20-40) % [place] % (Auto) 5.2 (2-11) % Eos % (Auto) 5.5 H (0-4) % Baso % (Auto) 0.5 (0-2) % Lymph # (Auto) 2.4 (1.2-4.9) X10*3/uL [place] # (Auto) 0.5 (0.1-1.2) X10*3/uL Eos # (Auto) 0.6 H (0.0-0.4) X10*3/uL Baso # (Auto) 0.1 (0.0-0.2) X10*3/uL Abs Immat Gran (auto) 0.04 H (0.00-0.03) X10*3/uL Absolute Neuts (auto) 6.5 (2.0-8.3) x10*3/uL Absolute Nucleated RBC 0.000 (0.0-0.012) X10*3/uL Nucleated RBC % (auto) 0.0 (0.0-0.2) /100WBC PT 12.0 (10.0-13.1) SEC INR 1.0 (0.9-1.1) APTT 27.0 (26.0-36.4) SEC Sodium 140 (135-145) mmol/L Potassium 4.1 (3.3-5.1) mmol/L Chloride 109 H (96-108) mmol/L Carbon Dioxide 24 (22-29) mmol/L Anion Gap 11 L (12-20) BUN 14 (9-16) mg/dL Creatinine 0.88 (0.5-1.4) mg/dL Estim Creat Clear Calc 88.1 Estimated GFR > 60 Random Glucose 145 H (60-115) mg/dL Calcium 9.0 D (8.4-10.2) mg/dL Total Bilirubin 0.3 (0.0-1.0) mg/dL AST 12 (5-31) U/L ALT 17 (0-31) U/L Alkaline Phosphatase 76 (39-117) U/L Troponin I High Sens (<3.5-17.0) ng/L B-Natriuretic Peptide (<100) pg/mL Total Protein 6.9 (6.5-8.0) g/dL Albumin 4.3 (3.5-5.0) g/dL Urine Color Urine Appearance Urine pH (5.0-9.0) Ur Specific [place] (1.005-1.025) Urine Protein (Neg-Trace) mg/dL Urine Glucose (UA) (Negative) mg/dL Urine Ketones (Negative) mg/dL Urine Blood (Negative) Urine Nitrite (Negative) Ur Leukocyte Esterase (Negative) Urine RBC (0-2) /HPF Urine WBC (0-5) /HPF Ur Squamous Epith Cells (0-2) /HPF Urine Bacteria (None Seen) Hyaline Casts (0-2) /LPF 06/29/22 06/29/22 06/29/22 Range/Units 13:56 13:56 15:04 WBC (4.8-10.8) X10*3/uL RBC (4.20-5.50) X10*6/uL Hgb (12.0-16.0) g/dl Hct (37.0-47.0) % MCV (80.0-98.0) fL MCH (27.0-33.0) pg MCHC (31.0-35.0) g/dl RDW (11.0-16.0) % Plt Count (160-400) X10*3/uL MPV (9.4-12.3) fL Immature Gran % (Auto) (0.0-0.4) % Neut % (Auto) (45-73) % Lymph % (Auto) (20-40) % [place] % (Auto) (2-11) % Eos % (Auto) (0-4) % Baso % (Auto) (0-2) % Lymph # (Auto) (1.2-4.9) X10*3/uL [place] # (Auto) (0.1-1.2) X10*3/uL Eos # (Auto) (0.0-0.4) X10*3/uL Baso # (Auto) (0.0-0.2) X10*3/uL Abs Immat Gran (auto) (0.00-0.03) X10*3/uL Absolute Neuts (auto) (2.0-8.3) x10*3/uL Absolute Nucleated RBC (0.0-0.012) X10*3/uL Nucleated RBC % (auto) (0.0-0.2) /100WBC PT (10.0-13.1) SEC INR (0.9-1.1) APTT (26.0-36.4) SEC Sodium (135-145) mmol/L Potassium (3.3-5.1) mmol/L Chloride (96-108) mmol/L Carbon Dioxide (22-29) mmol/L Anion Gap (12-20) BUN (9-16) mg/dL Creatinine (0.5-1.4) mg/dL Estim Creat Clear Calc Estimated GFR Random Glucose (60-115) mg/dL Calcium (8.4-10.2) mg/dL Total Bilirubin (0.0-1.0) mg/dL AST (5-31) U/L ALT (0-31) U/L Alkaline Phosphatase (39-117) U/L Troponin I High Sens < 3.5 (<3.5-17.0) ng/L B-Natriuretic Peptide 24 (<100) pg/mL Total Protein (6.5-8.0) g/dL Albumin (3.5-5.0) g/dL Urine Color Yellow Urine Appearance Cloudy Urine pH 7.5 (5.0-9.0) Ur Specific [place] 1.015 (1.005-1.025) Urine Protein Negative (Neg-Trace) mg/dL Urine Glucose (UA) Negative (Negative) mg/dL Urine Ketones Negative (Negative) mg/dL Urine Blood Small (1+) H (Negative) Urine Nitrite Negative (Negative) Ur Leukocyte Esterase Negative (Negative) Urine RBC 6-10 H (0-2) /HPF Urine WBC 0-5 (0-5) /HPF Ur Squamous Epith Cells 0-2 (0-2) /HPF Urine Bacteria None Seen (None Seen) Hyaline Casts 0-2 (0-2) /LPF 06/29/22 Range/Units 16:12 WBC (4.8-10.8) X10*3/uL RBC (4.20-5.50) X10*6/uL Hgb (12.0-16.0) g/dl Hct (37.0-47.0) % MCV (80.0-98.0) fL MCH (27.0-33.0) pg MCHC (31.0-35.0) g/dl RDW (11.0-16.0) % Plt Count (160-400) X10*3/uL MPV (9.4-12.3) fL Immature Gran % (Auto) (0.0-0.4) % Neut % (Auto) (45-73) % Lymph % (Auto) (20-40) % [place] % (Auto) (2-11) % Eos % (Auto) (0-4) % Baso % (Auto) (0-2) % Lymph # (Auto) (1.2-4.9) X10*3/uL [place] # (Auto) (0.1-1.2) X10*3/uL Eos # (Auto) (0.0-0.4) X10*3/uL Baso # (Auto) (0.0-0.2) X10*3/uL Abs Immat Gran (auto) (0.00-0.03) X10*3/uL Absolute Neuts (auto) (2.0-8.3) x10*3/uL Absolute Nucleated RBC (0.0-0.012) X10*3/uL Nucleated RBC % (auto) (0.0-0.2) /100WBC PT (10.0-13.1) SEC INR (0.9-1.1) APTT (26.0-36.4) SEC Sodium (135-145) mmol/L Potassium (3.3-5.1) mmol/L Chloride (96-108) mmol/L Carbon Dioxide (22-29) mmol/L Anion Gap (12-20) BUN (9-16) mg/dL Creatinine (0.5-1.4) mg/dL Estim Creat Clear Calc Estimated GFR Random Glucose (60-115) mg/dL Calcium (8.4-10.2) mg/dL Total Bilirubin (0.0-1.0) mg/dL AST (5-31) U/L ALT (0-31) U/L Alkaline Phosphatase (39-117) U/L Troponin I High Sens < 3.5 (<3.5-17.0) ng/L B-Natriuretic Peptide (<100) pg/mL Total Protein (6.5-8.0) g/dL Albumin (3.5-5.0) g/dL Urine Color Urine Appearance Urine pH (5.0-9.0) Ur Specific [place] (1.005-1.025) Urine Protein (Neg-Trace) mg/dL Urine Glucose (UA) (Negative) mg/dL Urine Ketones (Negative) mg/dL Urine Blood (Negative) Urine Nitrite (Negative) Ur Leukocyte Esterase (Negative) Urine RBC (0-2) /HPF Urine WBC (0-5) /HPF Ur Squamous Epith Cells (0-2) /HPF Urine Bacteria (None Seen) Hyaline Casts (0-2) /LPF Independent Interpretation I performed an independent interpretation of an: EKG (NSR [address]-t changes) Radiology Impression Discussion of test interpretation with radiology: I have reviewed the radiologist's reading. Radiologist Impression: no PE Discharge Plan Discharge Clinical Impression: Chest wall pain Patient Disposition: Home, Self-Care Instructions: Chest Wall Pain (ED) Prescriptions: New oxycodone 5 mg capsule 5 mg PO Q8H PRN (Reason: pain) Qty: 12 0RF Rx Instructions: Partial Fill upon patient request. No Action ondansetron HCl [Zofran] 4 mg tablet 4 mg PO Q8H PRN (Reason: nausea and vomiting) Qty: 10 0RF hydrocodone-acetaminophen 5-325 mg tablet 1 tab PO Q4-6H PRN (Reason: pain) Qty: 12 0RF Rx Instructions: for 3 days sulfamethoxazole-trimethoprim [Bactrim DS] 800-160 mg tablet 1 tab PO BID 7 Days Qty: 14 0RF phenazopyridine [Pyridium] 100 mg tablet 100 mg PO TID PRN (Reason: spasm) 3 Days Qty: 10 0RF simvastatin 10 mg tablet 10 mg PO BEDTIME lisinopril 10 mg tablet 10 mg PO DAILY topiramate 100 mg cap,sprinkle,ER 24hr dose pack 100 mg PO DAILY aspirin 500 mg tablet 1,000 mg PO Q4-6H PRN Rx Instructions: do not exceed 4 doses per 24 hrs Referrals: Marsha Cisneros MD [Primary Care Provider] - 2 days Interventions: ED Discharge Assessment Last Done: 06/29/22 19:04 Discharge Date/Time: 06/29/22 19:04
[2022-06-29 15:56] LABS: Bacteria Urine None Seen (None Seen); Hyaline Casts Urine 0-2 /LPF (0-2); Squamous Epithelial Cell Urine 0-2 /HPF (0-2); WBC Urine 0-5 /HPF (0-5)
--- NOTE | 2022-06-29 16:22 | PC.NURSE ---
patient a/ox4 . jessierla . heart rate regular at 62 beats per minute . breathing even and unlabored . lungs clear throughout . dry non -productive cough . skin pink warm and dry . abdomen soft and non -tender . positive bowel sounds throughout . EKG done and read by DR. Lopes . IV placed by use of ultrasound and provider .patient reports pain level of 6 out of 10 in back . Patient to CT for images . labs done and sent . patient on quality assurance monitor body . patient aware of plan of care .
[2022-06-29] MEDS: iohexoL 350 MG/ML 100 ML INFUS..BTL IV (16:25)
[2022-06-29 16:28] VITALS: BP 153/71; PULSE 67; RESP 18; TEMP 36.6; O2SAT 98
[2022-06-29 16:41] LABS: Troponin-I High Sensitivity < 3.5 ng/L (<3.5-17.0)
--- NOTE | 2022-06-29 19:02 | PC.NURSE ---
patient a/ox4 . VSS . Went over discharge instructions as ordered by provider .patient to follow up with primary care . patient to return to Ed if symptoms worsen . no questions at this time .
== END 2022-06-29 19:04 | disposition home or self-care (01) ==
PROVIDERS: Physician Assistant; Emergency Provider Emergency Medicine; PCP Internal Medicine
DX: R07.89 Other chest pain (principal); M54.6 Pain in thoracic spine; M54.50 Low back pain, unspecified; R06.02 Shortness of breath; I10 Essential (primary) hypertension; Z79.899 Other long term (current) drug therapy
CPT/HCPCS: 36415; 36556; 71045; 71275; 72072; 72100; 80053; 81001; 83880; 84484; 85025; 85610; 85730; 93005; 99284; 99285; Q9967

== ENCOUNTER 2023-10-06 16:43 | Emergency (ER) | payer OTHER, SELFPAY ==
--- NOTE | ~2023-10-06 | XR_ITS ---
EXAMINATION: XR CHEST CLINICAL INFORMATION: Chest pain Cough COMPARISON: Chest 06/29/2022 TECHNIQUE: 2 views of the chest were obtained. FINDINGS: No significant abnormality is noted involving the heart, lungs, mediastinum, bony thorax or soft tissues. XR/XR chest 2V IMPRESSION: No acute cardiopulmonary disease.
--- NOTE | 2023-10-06 16:44 | ECG_ITS ---
Test Reason : CHEST PAIN Blood Pressure : / mmHG Vent. Rate : 071 BPM Atrial Rate : 071 BPM P-R Int : 212 ms QRS Dur : 090 ms QT Int : 376 ms P-R-T Axes : 012 -37 070 degrees QTc Int : 408 ms Sinus rhythm with 1st degree A-V block Left axis deviation Abnormal ECG When compared with ECG of 29-JUN-2022 15:19, No significant change was found Referred By: Frannie Ponce Electronically Signed By:MEÑO DUTTON MD
[2023-10-06 16:56] VITALS: BP 181/78; PULSE 80; RESP 22; TEMP 36.3; O2SAT 97; BMI 34.9
--- NOTE | 2023-10-06 16:56 | ED_ITS ---
HPI - General Adult General Chief complaint: Upper Respiratory Symptoms Stated complaint: Dr. Sexton ref pt here for cardio check up Time Seen by Provider: 10/06/23 18:15 Source: patient and old records reviewed Mode of arrival: ambulatory Limitations: no limitations History of Present Illness HPI narrative: 58 yo female with PMH of GERD, HLD, hypertrophic cardiomyopathy here with one week of nasal congestion, cough, feels hard to breathe, chest is burning - she denies sick contacts, travel history, she lives with a smoker. Denies needing INH before. Sent by PCP who was covering for abnormality on EKG. MD complaint: URI Onset (ago): week(s) (1) Location: chest Radiation: non-radiation Severity: moderate Quality: burning Pain Consistency: intermittent Relieving factors: rest Exacerbating factors: other (coughing) Associated symptoms: cough, fever/chills, headaches and malaise Treatments prior to arrival: other (nyquil) Related Data Home Medications ?Medication ?Instructions ?Recorded ?Confirmed aspirin 500 mg tablet 1,000 mg PO Q4-6H PRN 08/27/20 08/27/20 lisinopril 10 mg tablet 10 mg PO DAILY 08/27/20 08/27/20 simvastatin 10 mg tablet 10 mg PO BEDTIME 08/27/20 08/27/20 topiramate 100 mg capsule 100 mg PO DAILY 08/27/20 08/27/20 sprinkle,extended release 24 hr Previous Rx's ?Medication ?Instructions ?Recorded hydrocodone 5 mg-acetaminophen 325 1 tab PO Q4-6H PRN pain #12 tabs 07/26/20 mg tablet ondansetron HCl 4 mg tablet 4 mg PO Q8H PRN nausea and 07/26/20 (Zofran) vomiting #10 tabs phenazopyridine 100 mg tablet 100 mg PO TID PRN spasm 3 days #10 03/21/21 (Pyridium) tabs sulfamethoxazole 800 1 tab PO BID 7 days #14 tabs 03/21/21 mg-trimethoprim 160 mg tablet (Bactrim DS) oxycodone 5 mg capsule 5 mg PO Q8H PRN pain #12 caps 06/29/22 albuterol sulfate 90 mcg/actuation 2 puff inhalation QID PRN 10/06/23 aerosol inhaler (Ventolin HFA) shortness of breath or wheezing #6.7 grams doxycycline hyclate 100 mg capsule 100 mg PO BID 7 days #14 caps 10/06/23 Allergies Allergy/AdvReac Type Severity Reaction Status Date / Time Seasonal Allergies Allergy Mild Runny Verified 10/06/23 16:59 Nose, congestion Review of Systems 2 Review of Systems: Constitutional : pos Fever, pos Chills ENT/Mouth : No Hoarseness, No sore throat, No Rhinorrhea Eyes: No Redness, No Discharge, No Vision Changes Cardiovascular : pos Chest Pain, positive SOB, positive Dyspnea on Exertion, No Edema Respiratory : positive Cough, No Sputum, positive Wheezing, Gastrointestinal : No Nausea, No Vomiting, No Diarrhea, No abdominal Pain Genitourinary : No Dysuria, No Hematuria Musculoskeletal : No joint pain, No Myalgias Skin : No rash Neuro : No Weakness, No Numbness, No Headache Psych : No anxiety, depression Heme/Lymph: No Bruising, No Bleeding Endocrine : No Polyuria, No Polydipsia All other systems reviewed and are negative PMFSH Past Medical History Attestation statement: The following information was validated with the patient. Source: old records reviewed Medical History Kidney stones Osteoarthritis Streptococcal bacteremia Hyperlipidemia GERD (gastroesophageal reflux disease) No known health problems Surgical History Hx of colonoscopy Family History Family History Father Diabetes Mother Diabetes Brother Diabetes Brother Diabetes Brother Diabetes Brother Diabetes Sister Diabetes Social History Social History Household Members: Spouse, Children and Other Alcohol intake: never Patient Tobacco Use Status: Never used Tobacco Substance Use Type: Marijuana Advance Directives: No Advance Directives Information Provided: No Do you have a plan to hurt others: No Plan Physical Exam ED Vital Signs: Vital Signs - 24 hr 10/06/23 16:56 Temperature 97.4 F Pulse Rate 80 Respiratory Rate 22 H Blood Pressure 181/78 H Pulse Oximetry 97 BMI result Body Mass Index 34.9 Appearance: Alert. Oriented X3. No acute distress. Eyes: Pupils equal, round and reactive to light. ENT: Pharynx normal. Neck: Normal inspection. Neck supple. no JVD CVS: Normal heart rate and rhythm. Pulses normal. Respiratory: No respiratory distress. Breath sounds rhonchi and bronchospastic cough Abdomen: Soft and nontender. Skin: Skin warm and dry. Normal skin color. Normal skin turgor. Extremities: No lower extremity edema. No calf ttp Neuro: Oriented X 3. No motor deficit. No sensory deficit. Course Course Course Narrative: This is a rapid medical exam: Additional HPI, ROS, PE not included below will be deferred to primary provider. Patient is a 58-year-old female with history of OA, GERD, hyperlipidemia presenting to the ED with complaint of chest pain worse with coughing, dyspnea. She was referred to the ED from [place] after being seen there for same sxs, noted to have T wave inversion in leads V1 and avL. Plan: viral swabs, EKG, labs, CXR Medical Decision Making Medical Decision Making [facility] Narrative: 58 yo female with PMH of GERD, HLD, hypertrophic cardiomyopathy, here with c/o one week of cough, feeling short of breath, chest burning, fevers chills - no sick contacts or travel - PCP who was filling in today did EKG and told her it was changed from baseline and sent her in for evaluation. Her symptoms seem viral vs bronchitis and more infectious. No leg pain or hypoxia to suggest DVT or VTE. Will obtain EKG, CXR, viral panel, basic labs and start on inhaler, antibiotics for bronchitis. She has no JVD, edema or edema or CXR to suggest CHF. Differential Diagnosis Differential Diagnoses: The differential diagnosis associated with the presentation includes bronchitis, viral syndrome, pneumonia Admission/Observation Consideration of admission/observation: Escalation of care including admission/observation considered no sig change on EKG, trop negative, URI symptoms, no hypoxia will treat as bronchitis stable for DC Lab Data [facility] Lab Attestation statement: I reviewed the patient's lab results. 10/06/23 16:56 10/06/23 16:56 Labs: Lab Results 10/06/23 10/06/23 Range/Units 16:55 16:56 WBC 9.8 (4.8-10.8) X10*3/uL RBC 4.81 (4.20-5.50) X10*6/uL Hgb 14.2 (12.0-16.0) g/dl Hct 41.8 (37.0-47.0) % MCV 86.9 (80.0-98.0) fL MCH 29.5 (27.0-33.0) pg MCHC 34.0 (31.0-35.0) g/dl RDW 12.8 (11.0-16.0) % Plt Count 194 (160-400) X10*3/uL MPV 9.8 (9.4-12.3) fL Immature Gran % (Auto) 0.3 (0.0-0.4) % Neut % (Auto) 74.8 H (45-73) % Lymph % (Auto) 12.8 L (20-40) % Garden % (Auto) 7.0 (2-11) % Eos % (Auto) 4.8 H (0-4) % Baso % (Auto) 0.3 (0-2) % Lymph # (Auto) 1.3 (1.2-4.9) X10*3/uL [place] # (Auto) 0.7 (0.1-1.2) X10*3/uL Eos # (Auto) 0.5 H (0.0-0.4) X10*3/uL Baso # (Auto) 0.0 (0.0-0.2) X10*3/uL Abs Immat Gran (auto) 0.03 (0.00-0.03) X10*3/uL Absolute Neuts (auto) 7.3 (2.0-8.3) x10*3/uL Absolute Nucleated RBC 0.000 (0.0-0.012) X10*3/uL Nucleated RBC % (auto) 0.0 (0.0-0.2) /100WBC PT 13.2 (11.1-13.3) SEC INR 1.1 (0.9-1.1) Sodium 141 (135-145) mmol/L Potassium 3.7 (3.3-5.1) mmol/L Chloride 112 H (96-108) mmol/L Carbon Dioxide 24 (22-29) mmol/L Anion Gap 9 L (12-20) BUN 11 (9-16) mg/dL Creatinine 0.84 (0.5-1.4) mg/dL Estim Creat Clear Calc 91.3 Estimated GFR > 60 Random Glucose 178 H (60-115) mg/dL Calcium 8.9 (8.4-10.2) mg/dL Total Bilirubin 0.3 (0.0-1.0) mg/dL AST 23 (5-31) U/L ALT 33 H (0-31) U/L Alkaline Phosphatase 94 (39-117) U/L Troponin I High Sens < 2.7 (<3.5-17.0) ng/L Total Protein 7.6 (6.5-8.0) g/dL Albumin 4.4 (3.5-5.0) g/dL Influenza Type A (PCR) NEGATIVE (Negative) Influenza Type B (PCR) NEGATIVE (Negative) RSV RNA Qual (PCR) NEGATIVE (Negative) SARS-CoV-2 RNA (RT-PCR) NEGATIVE (Negative) Independent Interpretation I performed an independent interpretation of an: EKG and Plain X-Ray (no pneumonia) Interpretation: Rate: 71 Rhythm: NSR 1st degree AVB [place]: left, LVH Normal P waves. 1st degree AVB Normal QRS complex. ST T wave : no NICOLA, inverted t wave aVL qTC:normal prior studies: no sig change Jun 2022 The study has been interpreted contemporaneously by me. . Radiology Impression Discussion of test interpretation with radiology: I have reviewed the radiologist's reading. External Record Review External record reviewed: Inpatient record Prescription Management I considered prescription management with: Antibiotic and Other Discharge Plan Discharge Clinical Impression: Bronchitis Patient Disposition: Home, Self-Care Instructions: Acute Bronchitis (ED) Additional Instructions: return for worsening symptoms - increased pain, fevers, worsening breathing or any other concerns 2 puffs every 4 to 6 hours for difficulty breathing EKG at baseline, chest xray clear, viral panel for flu covid rsv negative blood pressure is high make sure you follow up with your primary care doctor On doxycycline, do not take pills immediately before going to bed and swallow pills with plenty of water. Avoid direct sunlight, iron, antacids, and Pepto Bismol. Call your provider if you develop new ringing in your ears, new problems hearing, dizziness, difficulty swallowing, rash, abdominal discomfort, nausea, or diarrhea.? Prescriptions: New albuterol sulfate [Ventolin HFA] 90 mcg/actuation HFA aerosol inhaler 2 puff inhalation QID PRN (Reason: shortness of breath or wheezing) Qty: 6.7 0RF doxycycline hyclate 100 mg capsule 100 mg PO BID 7 Days Qty: 14 0RF No Action ondansetron HCl [Zofran] 4 mg tablet 4 mg PO Q8H PRN (Reason: nausea and vomiting) Qty: 10 0RF hydrocodone-acetaminophen 5-325 mg tablet 1 tab PO Q4-6H PRN (Reason: pain) Qty: 12 0RF Rx Instructions: for 3 days sulfamethoxazole-trimethoprim [Bactrim DS] 800-160 mg tablet 1 tab PO BID 7 Days Qty: 14 0RF phenazopyridine [Pyridium] 100 mg tablet 100 mg PO TID PRN (Reason: spasm) 3 Days Qty: 10 0RF oxycodone 5 mg capsule 5 mg PO Q8H PRN (Reason: pain) Qty: 12 0RF Rx Instructions: Partial Fill upon patient request. simvastatin 10 mg tablet 10 mg PO BEDTIME lisinopril 10 mg tablet 10 mg PO DAILY topiramate 100 mg skyla felipe,ER 24hr dose pack 100 mg PO DAILY aspirin 500 mg tablet 1,000 mg PO Q4-6H PRN Rx Instructions: do not exceed 4 doses per 24 hrs Print Language: Thai
[2023-10-06 17:00] LABS: MANUAL DIFF FLAG NO
[2023-10-06 17:02] LABS: Basophils Percent Auto 0.3 % (0-2); Eosinophils Absolute Auto 0.5 X10*3/uL (0.0-0.4); Eosinophils Percent Auto 4.8 % (0-4); Hematocrit 41.8 % (37.0-47.0); Hemoglobin 14.2 g/dl (12.0-16.0); Imm Gran Abs Auto 0.03 X10*3/uL (0.00-0.03); Imm Gran Pct Auto 0.3 % (0.0-0.4); Lymphocytes Absolute Auto 1.3 X10*3/uL (1.2-4.9); Lymphocytes Percent Auto 12.8 % (20-40); Mean Corpuscular Hemoglobin 29.5 pg (27.0-33.0); Mean Corpuscular Volume 86.9 fL (80.0-98.0); Mean Platelet Volume 9.8 fL (9.4-12.3); Monocytes Absolute Auto 0.7 X10*3/uL (0.1-1.2); Neutrophils Absolute Auto 7.3 x10*3/uL (2.0-8.3); Neutrophils Percent Auto 74.8 % (45-73); Platelet Count 194 X10*3/uL (160-400); Red Blood Count 4.81 X10*6/uL (4.20-5.50); Red Cell Distribution Width 12.8 % (11.0-16.0); White Blood Count 9.8 X10*3/uL (4.8-10.8)
[2023-10-06 17:09] LABS: INTERNATIONAL NORM RATIO 1.1 (0.9-1.1); Prothrombin Time 13.2 SEC (11.1-13.3)
[2023-10-06 17:15] LABS: Alanine Aminotransferase 33 U/L (0-31); Albumin Level 4.4 g/dL (3.5-5.0); Alkaline Phosphatase 94 U/L (39-117); Anion Gap 9 (12-20); Aspartate Amino Transferase 23 U/L (5-31); Bilirubin Total 0.3 mg/dL (0.0-1.0); Blood Urea Nitrogen 11 mg/dL (9-16); Calcium 8.9 mg/dL (8.4-10.2); Carbon Dioxide 24 mmol/L (22-29); Chloride 112 mmol/L (96-108); Creatinine Clr Calc Pharmacy 91.3; Estimated Glomerular Filt Rate > 60; Glucose Random 178 mg/dL (60-115); Potassium 3.7 mmol/L (3.3-5.1); Sodium 141 mmol/L (135-145); Total Protein 7.6 g/dL (6.5-8.0)
[2023-10-06 17:25] LABS: Troponin-I High Sensitivity < 2.7 ng/L (<3.5-17.0)
[2023-10-06 17:39] LABS: Influenza A PCR NEGATIVE (Negative); Influenza B PCR NEGATIVE (Negative); Resp Syncy Virus RNA Qual PCR NEGATIVE (Negative); SARS COV2 PCR INHOUSE NEGATIVE (Negative)
[2023-10-06] MEDS: Doxycycline Monohydrate 100 MG CAPSULE PO (19:13)
[2023-10-06] MEDS: guaiFEN/Codeine SF 200/20/10ML 10 ML LIQUID 5 ML PO (19:14)
[2023-10-06 19:40] VITALS: BP 145/68; PULSE 95; RESP 20; TEMP 37.2; O2SAT 98
[2023-10-06] MEDS: Albuterol Sulfate 90 MCG 8 GM INHALER 2 PUFF INHALE (19:40)
== END 2023-10-06 19:41 | disposition home or self-care (01) ==
PROVIDERS: Registered Nurse Emergency; Emergency Provider Emergency Medicine; PCP Internal Medicine
DX: J40 Bronchitis, not specified as acute or chronic (principal); R09.81 Nasal congestion; R05.9 Cough, unspecified; R07.89 Other chest pain; R06.02 Shortness of breath; R51.9 Headache, unspecified; Z11.52 Encounter for screening for COVID-19; Z20.822 Contact with and (suspected) exposure to COVID-19; Z79.899 Other long term (current) drug therapy
CPT/HCPCS: 0241U; 71046; 80053; 84484; 85025; 85610; 93005; 99283; 99284

== ENCOUNTER → 2023-10-06 16:44 | Outpatient (BNV) | payer OTHER, SELFPAY | PROVIDERS: Emergency Provider Emergency Medicine; PCP Internal Medicine; Visit Provider Internal Medicine Cardiovascular Disease | DX: I44.0 Atrioventricular block, first degree (principal) | CPT/HCPCS: 93010 ==

== ENCOUNTER 2023-11-27 01:47 | Emergency (ER) | payer OTHER, SELFPAY ==
[2023-11-27 01:58] VITALS: BP 147/88; PULSE 67; RESP 16; TEMP 36.8; O2SAT 97; BMI 34.7
[2023-11-27 02:38] LABS: Appearance Urine Cloudy; Color Urine Yellow; Glucose Urine UA Negative (Negative); Leukocyte Esterase Urine Moderate (2+) (Negative); Nitrite Urine Positive (Negative); Specific Gravity - Urine 1.025 (1.005-1.025); UMIC TRIGGER UACC YES; Urine Blood Large (3+) (Negative); Urine Ketones Negative (Negative); Urine Protein 100 (2+) mg/dL (Neg-Trace)
--- NOTE | 2023-11-27 02:47 | ED_ITS ---
HPI - Female Genitourinary General Chief complaint: Urogenital-Female Stated complaint: UTI? Time Seen by Provider: 11/27/23 02:23 Source: patient Mode of arrival: ambulatory Limitations: no limitations History of Present Illness ED Provider: kerry LEPE Narrative: Patient otherwise healthy complaining of dysuria frequency for last 24 hours history of UTI in the past no fever no chills no nausea no vomiting patient does have chronic back pain no history of kidney stone no history of recurrent UTI Related Data Home Medications ?Medication ?Instructions ?Recorded ?Confirmed aspirin 500 mg tablet 1,000 mg PO Q4-6H PRN 08/27/20 08/27/20 lisinopril 10 mg tablet 10 mg PO DAILY 08/27/20 08/27/20 simvastatin 10 mg tablet 10 mg PO BEDTIME 08/27/20 08/27/20 topiramate 100 mg capsule 100 mg PO DAILY 08/27/20 08/27/20 sprinkle,extended release 24 hr Previous Rx's ?Medication ?Instructions ?Recorded hydrocodone 5 mg-acetaminophen 325 1 tab PO Q4-6H PRN pain #12 tabs 07/26/20 mg tablet ondansetron HCl 4 mg tablet 4 mg PO Q8H PRN nausea and 07/26/20 (Zofran) vomiting #10 tabs phenazopyridine 100 mg tablet 100 mg PO TID PRN spasm 3 days #10 03/21/21 (Pyridium) tabs sulfamethoxazole 800 1 tab PO BID 7 days #14 tabs 03/21/21 mg-trimethoprim 160 mg tablet (Bactrim DS) oxycodone 5 mg capsule 5 mg PO Q8H PRN pain #12 caps 06/29/22 albuterol sulfate 90 mcg/actuation 2 puff inhalation QID PRN 10/06/23 aerosol inhaler (Ventolin HFA) shortness of breath or wheezing #6.7 grams doxycycline hyclate 100 mg capsule 100 mg PO BID 7 days #14 caps 10/06/23 cefuroxime axetil 250 mg tablet 250 mg PO BID 7 days #14 tabs 11/27/23 phenazopyridine 200 mg tablet 200 mg PO TID 2 days #6 tabs 11/27/23 (Pyridium) Allergies Allergy/AdvReac Type Severity Reaction Status Date / Time Seasonal Allergies Allergy Mild Runny Verified 11/27/23 02:02 Nose, congestion Review of Systems Review of Systems: Yes all other systems are reviewed and are negative [facility] Past Medical History Medical History Kidney stones Osteoarthritis Streptococcal bacteremia Hyperlipidemia GERD (gastroesophageal reflux disease) No known health problems Surgical History Hx of colonoscopy Family History Family History Father Diabetes Mother Diabetes Brother Diabetes Brother Diabetes Brother Diabetes Brother Diabetes Sister Diabetes Social History Social History Household Members: Spouse, Children and Other Alcohol intake: never Patient Tobacco Use Status: Never used Tobacco Smoked in Last 30 Days: No Substance Use Type: Marijuana Advance Directives: No Advance Directives Information Provided: Yes Do you have a plan to hurt others: No Plan Physical Exam Vital Signs: Vital Signs: Last Vital Signs Temp 98.3 F 11/27/23 01:58 Pulse 67 11/27/23 01:58 Resp 16 11/27/23 01:58 BP 147/88 H 11/27/23 01:58 Pulse Ox 97 11/27/23 01:58 O2 Del Method Room Air 11/27/23 01:58 BMI result Body Mass Index 34.7 Appearance: Alert. Oriented X3. No acute distress. ENT: Pharynx normal. Oral Mucosa moist Neck: Normal inspection. Neck supple. CVS: Normal heart rate and rhythm. Pulses normal. Respiratory: No respiratory distress. Equal air entry bilateral, Abdomen: Soft and nontender. Bowel sounds are present, no mass palpable, no CVA tenderness Skin: Skin warm and dry. Normal skin color. Normal skin turgor. Extremities: No lower extremity edema. No calf tenderness Neuro: Oriented X 3. Medications Administered Discontinued Medications Generic Name Dose Route Start Last Admin Trade Name Freq PRN Reason Stop Dose Admin Cefuroxime Axetil 250 mg 11/27/23 02:47 11/27/23 02:55 Cefuroxime Axetil 250 Mg Tablet PO 11/27/23 02:48 250 mg ONCE ONE Administration Phenazopyridine HCl 200 mg 11/27/23 02:47 11/27/23 02:55 Phenazopyridine Hcl 200 Mg Tablet PO 11/27/23 02:48 200 mg ONCE ONE Administration Medical Decision Making Medical Decision Making [facility] Narrative: Patient with uncomplicated UTI with history of E coli in the past with prescribed cefuroxime 250 mg twice daily Lab Data [facility] Lab Attestation statement: I reviewed the patient's lab results. Labs: Lab Results 11/27/23 Range/Units 02:13 Urine Color Yellow Urine Appearance Cloudy Urine pH 6.0 (5.0-9.0) Ur Specific [place] 1.025 (1.005-1.025) Urine Protein 100 (2+) H (Neg-Trace) mg/dL Urine Glucose (UA) Negative (Negative) mg/dL Urine Ketones Negative (Negative) mg/dL Urine Blood Large (3+) H (Negative) Urine Nitrite Positive H (Negative) Ur Leukocyte Esterase Moderate (2+) H (Negative) Discharge Plan Discharge Clinical Impression: Urinary tract infection Patient Disposition: Home, Self-Care Instructions: Urinary Tract Infection in Women (ED) Additional Instructions: Drink plenty of fluids Take antibiotics and pain medicine as prescribed Report to the ER/PCP if worsening of symptoms/fever/vomiting Prescriptions: New cefuroxime axetil 250 mg tablet 250 mg PO BID 7 Days Qty: 14 0RF phenazopyridine [Pyridium] 200 mg tablet 200 mg PO TID 2 Days Qty: 6 0RF No Action ondansetron HCl [Zofran] 4 mg tablet 4 mg PO Q8H PRN (Reason: nausea and vomiting) Qty: 10 0RF hydrocodone-acetaminophen 5-325 mg tablet 1 tab PO Q4-6H PRN (Reason: pain) Qty: 12 0RF Rx Instructions: for 3 days sulfamethoxazole-trimethoprim [Bactrim DS] 800-160 mg tablet 1 tab PO BID 7 Days Qty: 14 0RF phenazopyridine [Pyridium] 100 mg tablet 100 mg PO TID PRN (Reason: spasm) 3 Days Qty: 10 0RF oxycodone 5 mg capsule 5 mg PO Q8H PRN (Reason: pain) Qty: 12 0RF Rx Instructions: Partial Fill upon patient request. albuterol sulfate [Ventolin HFA] 90 mcg/actuation HFA aerosol inhaler 2 puff inhalation QID PRN (Reason: shortness of breath or wheezing) Qty: 6.7 0RF doxycycline hyclate 100 mg capsule 100 mg PO BID 7 Days Qty: 14 0RF simvastatin 10 mg tablet 10 mg PO BEDTIME lisinopril 10 mg tablet 10 mg PO DAILY topiramate 100 mg cap,sprinkle,ER 24hr dose pack 100 mg PO DAILY aspirin 500 mg tablet 1,000 mg PO Q4-6H PRN Rx Instructions: do not exceed 4 doses per 24 hrs Print Language: Occitan
[2023-11-27] MEDS: cefuroxime axetiL 250 MG TABLET PO (02:55)
[2023-11-27] MEDS: Phenazopyridine HCL 200 MG TABLET PO (02:55)
[2023-11-27 02:58] VITALS: BP 147/88; PULSE 67; RESP 16; TEMP 36.6; O2SAT 97
[2023-11-27 03:52] LABS: Bacteria Urine 2+ (None Seen); Hyaline Casts Urine 0-2 /LPF (0-2); UACC Culture Trigger YES
== END 2023-11-27 02:58 | disposition home or self-care (01) ==
PROVIDERS: Emergency Provider Internal Medicine; PCP Internal Medicine
DX: N39.0 Urinary tract infection, site not specified (principal)
CPT/HCPCS: 81001; 87086; 87088; 87186; 99283; 99284

== ENCOUNTER 2024-04-02 20:11 | Emergency (ER) | payer OTHER, SELFPAY ==
--- NOTE | ~2024-04-02 | XR_ITS ---
EXAMINATION: XR SHOULDER, LEFT CLINICAL INFORMATION: Left shoulder pain. Injury. COMPARISON: None available. TECHNIQUE: AP external rotation, Grashey, scapular Y, and axillary views of the left shoulder. FINDINGS: There is loss of AC joint space with periarticular spurring. Mild reduction in glenohumeral joint space is noted. No visible acute fracture, dislocation or subluxation seen. The soft tissues are normal. XR/XR shoulder LT min 2V IMPRESSION: Degenerative changes left AC joint and glenohumeral joint. No visible acute fracture or dislocation seen. Electronically signed by: Isaac Rothman MD 04/02/2024 09:17 PM EDT
[2024-04-02 20:41] VITALS: BP 157/85; PULSE 71; RESP 18; TEMP 37.1; O2SAT 97; BMI 32.9
--- NOTE | 2024-04-02 20:42 | ED.GENADULT ---
HPI - General Adult General Chief complaint: Urogenital-Female Stated complaint: ? UTI Time Seen by Provider: 04/03/24 03:33 Source: patient Mode of arrival: ambulatory Limitations: no limitations History of Present Illness ED Provider: kerry LEPE narrative: Patient complaining of dysuria since earlier today fell chills and hot no nausea no vomiting no flank pain history of similar UTI 12/04 , E coli sensitive to cefuroxime Related Data Home Medications ?Medication ?Instructions ?Recorded ?Confirmed aspirin 500 mg tablet 1,000 mg PO Q4-6H PRN 08/27/20 08/27/20 lisinopril 10 mg tablet 10 mg PO DAILY 08/27/20 08/27/20 simvastatin 10 mg tablet 10 mg PO BEDTIME 08/27/20 08/27/20 topiramate 100 mg capsule 100 mg PO DAILY 08/27/20 08/27/20 sprinkle,extended release 24 hr Previous Rx's ?Medication ?Instructions ?Recorded hydrocodone 5 mg-acetaminophen 325 1 tab PO Q4-6H PRN pain #12 tabs 07/26/20 mg tablet ondansetron HCl 4 mg tablet 4 mg PO Q8H PRN nausea and 07/26/20 (Zofran) vomiting #10 tabs phenazopyridine 100 mg tablet 100 mg PO TID PRN spasm 3 days #10 03/21/21 (Pyridium) tabs sulfamethoxazole 800 1 tab PO BID 7 days #14 tabs 03/21/21 mg-trimethoprim 160 mg tablet (Bactrim DS) oxycodone 5 mg capsule 5 mg PO Q8H PRN pain #12 caps 06/29/22 albuterol sulfate 90 mcg/actuation 2 puff inhalation QID PRN 10/06/23 aerosol inhaler (Ventolin HFA) shortness of breath or wheezing #6.7 grams doxycycline hyclate 100 mg capsule 100 mg PO BID 7 days #14 caps 10/06/23 cefuroxime axetil 250 mg tablet 250 mg PO BID 7 days #14 tabs 11/27/23 phenazopyridine 200 mg tablet 200 mg PO TID 2 days #6 tabs 11/27/23 (Pyridium) cefuroxime axetil 250 mg tablet 250 mg PO BID 7 days #14 tabs 04/03/24 phenazopyridine 200 mg tablet 200 mg PO TID 2 days #6 tabs 10/22/24 (Pyridium) Allergies Allergy/AdvReac Type Severity Reaction Status Date / Time Seasonal Allergies Allergy Mild Runny Verified 04/02/24 20:44 Nose, congestion Review of Systems Review of Systems: Yes all other systems are reviewed and are negative [facility] Past Medical History Medical History Kidney stones Osteoarthritis Streptococcal bacteremia Hyperlipidemia GERD (gastroesophageal reflux disease) No known health problems Surgical History Hx of colonoscopy Family History Family History Father Diabetes Mother Diabetes Brother Diabetes Brother Diabetes Brother Diabetes Brother Diabetes Sister Diabetes Social History Social History Household Members: Spouse, Children and Other Alcohol intake: never Patient Tobacco Use Status: Never used Tobacco Substance Use Type: Marijuana Advance Directives: No Advance Directives Information Provided: No Do you have a plan to hurt others: No Plan Physical Exam ED Vital Signs: Vital Signs - 24 hr 04/02/24 20:41 04/03/24 01:51 04/03/24 04:33 Temperature 98.7 F 98.6 F 98.6 F Pulse Rate 71 69 69 Respiratory Rate 18 18 18 Blood Pressure 157/85 H 172/57 H 172/57 H Pulse Oximetry 97 97 97 Oxygen Delivery Method Room Air Room Air BMI result Body Mass Index 32.9 Appearance: Alert. Oriented X3. No acute distress. Eyes: PERRLA, No Nystagmus ENT: Pharynx normal. Oral Mucosa moist Neck: Normal inspection. Neck supple. CVS: Normal heart rate and rhythm. Pulses normal. Respiratory: No respiratory distress. Equal air entry bilateral, no wheezing/rales/rhonchi Abdomen: Soft and nontender. Bowel sounds are present, no mass palpable, no CVA tenderness Skin: Skin warm and dry. Normal skin color. Normal skin turgor. Extremities: No lower extremity edema. No calf tenderness Neuro: Oriented X 3. No motor deficit. No sensory deficit.No cerebellar signs , cranial nerves II-XII intact Course Course Course Narrative: RME performed by Dunia Bai, PA-C. Patient is a 59 year old assigned female at presenting to the emergency department with left shoulder pain and difficulty urinating. Patient states that she has had left sided shoulder pain for months but it is worse today and she has been unable to urinate well. Detailed physical exam and review of systems are deferred to the metal off bearer. Imaging and UA ordered. Patient placed back in the waiting room pending room availability and results. Medications Administered Discontinued Medications Generic Name Dose Route Start Last Admin Trade Name Anderson PRN Reason Stop Dose Admin Cefuroxime Axetil 500 mg 04/03/24 03:39 04/03/24 04:24 Cefuroxime Axetil 500 Mg Tablet PO 04/03/24 03:40 500 mg ONCE ONE Administration Phenazopyridine HCl 200 mg 04/03/24 03:39 04/03/24 04:24 Phenazopyridine Hcl 200 Mg Tablet PO 04/03/24 03:40 200 mg ONCE ONE Administration Medical Decision Making Lab Data MDM Lab Attestation statement: I reviewed the patient's lab results. Labs: Lab Results 04/02/24 Range/Units 20:53 Urine Color Yellow Urine Appearance Cloudy Urine pH 5.5 (5.0-9.0) Ur Specific [place] 1.015 (1.005-1.025) Urine Protein 100 (2+) H (Neg-Trace) mg/dL Urine Glucose (UA) Negative (Negative) mg/dL Urine Ketones Negative (Negative) mg/dL Urine Blood Large (3+) H (Negative) Urine Nitrite Positive H (Negative) Ur Leukocyte Esterase Moderate (2+) H (Negative) Urine RBC >20 H (0-2) /HPF Urine WBC >50 H (0-5) /HPF Ur Squamous Epith Cells 0-2 (0-2) /HPF Urine Bacteria 4+ (None Seen) Hyaline Casts 0-2 (0-2) /LPF Discharge Plan Discharge Clinical Impression: Urinary tract infection Patient Disposition: Home, Self-Care Instructions: Urinary Tract Infection in Women (DC) Additional Instructions: Take antibiotic as prescribed Drink plenty of fluids Report to ER if increased vomiting/flank pain/high fever Prescriptions: New cefuroxime axetil 250 mg tablet 250 mg PO BID 7 Days Qty: 14 0RF phenazopyridine [Pyridium] 200 mg tablet 200 mg PO TID 2 Days Qty: 6 0RF No Action ondansetron HCl [Zofran] 4 mg tablet 4 mg PO Q8H PRN (Reason: nausea and vomiting) Qty: 10 0RF hydrocodone-acetaminophen 5-325 mg tablet 1 tab PO Q4-6H PRN (Reason: pain) Qty: 12 0RF Rx Instructions: for 3 days sulfamethoxazole-trimethoprim [Bactrim DS] 800-160 mg tablet 1 tab PO BID 7 Days Qty: 14 0RF phenazopyridine [Pyridium] 100 mg tablet 100 mg PO TID PRN (Reason: spasm) 3 Days Qty: 10 0RF oxycodone 5 mg capsule 5 mg PO Q8H PRN (Reason: pain) Qty: 12 0RF Rx Instructions: Partial Fill upon patient request. albuterol sulfate [Ventolin HFA] 90 mcg/actuation HFA aerosol inhaler 2 puff inhalation QID PRN (Reason: shortness of breath or wheezing) Qty: 6.7 0RF doxycycline hyclate 100 mg capsule 100 mg PO BID 7 Days Qty: 14 0RF cefuroxime axetil 250 mg tablet 250 mg PO BID 7 Days Qty: 14 0RF phenazopyridine [Pyridium] 200 mg tablet 200 mg PO TID 2 Days Qty: 6 0RF simvastatin 10 mg tablet 10 mg PO BEDTIME lisinopril 10 mg tablet 10 mg PO DAILY topiramate 100 mg skyla felipe,ER 24hr dose pack 100 mg PO DAILY aspirin 500 mg tablet 1,000 mg PO Q4-6H PRN Rx Instructions: do not exceed 4 doses per 24 hrs Interventions: ED Discharge Assessment Last Done: 04/03/24 04:33 Discharge Date/Time: 04/03/24 04:34 Print Language: Paraguayan
[2024-04-02 21:02] LABS: Appearance Urine Cloudy; Color Urine Yellow; Glucose Urine UA Negative (Negative); Leukocyte Esterase Urine Moderate (2+) (Negative); Nitrite Urine Positive (Negative); PH 5.5 (5.0-9.0); Specific Gravity - Urine 1.015 (1.005-1.025); UMIC TRIGGER UACC YES; Urine Blood Large (3+) (Negative); Urine Ketones Negative (Negative); Urine Protein 100 (2+) mg/dL (Neg-Trace)
[2024-04-02 21:04] LABS: Bacteria Urine 4+ (None Seen); Hyaline Casts Urine 0-2 /LPF (0-2); RBC Urine >20 /HPF (0-2); Squamous Epithelial Cell Urine 0-2 /HPF (0-2); UACC Culture Trigger YES; WBC Urine >50 /HPF (0-5)
[2024-04-03 01:51] VITALS: BP 172/57; PULSE 69; RESP 18; TEMP 37; O2SAT 97
[2024-04-03] MEDS: cefuroxime axetiL 500 MG TABLET PO (04:24)
[2024-04-03] MEDS: Phenazopyridine HCL 200 MG TABLET PO (04:24)
[2024-04-03 04:33] VITALS: BP 172/57; PULSE 69; RESP 18; TEMP 37; O2SAT 97
== END 2024-04-03 04:34 | disposition home or self-care (01) ==
PROVIDERS: Physician Assistant Medical; Emergency Provider Internal Medicine; PCP Internal Medicine
DX: N39.0 Urinary tract infection, site not specified (principal); M25.512 Pain in left shoulder; R30.0 Dysuria; Z79.899 Other long term (current) drug therapy
CPT/HCPCS: 73030; 81001; 81003; 87086; 87088; 87186; 99283

== ENCOUNTER 2024-12-22 20:01 | Emergency (ER) | payer OTHER, SELFPAY ==
--- NOTE | 2024-12-22 20:26 | ED_ITS ---
HPI - Female Genitourinary General Chief complaint: Urogenital-Male Stated complaint: UTI Time Seen by Provider: 12/22/24 21:06 Source: patient and old records reviewed Mode of arrival: ambulatory Limitations: no limitations History of Present Illness ED Provider: Dr. Belle Ríos HPI Narrative: 59-year-old female with a history of hypertrophic cardiomyopathy and GERD presenting with suprapubic abdominal pain, dysuria frequency ongoing for the last 24 hours or so. Admits that this feels similar to previous UTIs. Describes pain that radiates to the bilateral flanks that is intermittent in nature and worse with trying to urinate. Has been decreasing her oral intake due to the discomfort. Denies associated fever. Denies nausea, vomiting, bowel changes, hematuria. Does admit that her urine is somewhat dark though. Had been feeling well prior to this. Admits to frequent UTIs. MD elicited complaint: UTI Related Data Home Medications ?Medication ?Instructions ?Recorded ?Confirmed aspirin 500 mg tablet 1,000 mg PO Q4-6H PRN 08/27/20 lisinopril 10 mg tablet 10 mg PO DAILY 08/27/2008/11 simvastatin 10 mg tablet 10 mg PO BEDTIME 08/27/20 topiramate 100 mg capsule 100 mg PO DAILY 08/27/20 sprinkle,extended release 24 hr Previous Rx's ?Medication ?Instructions ?Recorded hydrocodone 5 mg-acetaminophen 325 1 tab PO Q4-6H PRN pain #12 tabs 07/26/20 mg tablet ondansetron HCl 4 mg tablet 4 mg PO Q8H PRN nausea and 07/26/20 (Zofran) vomiting #10 tabs phenazopyridine 100 mg tablet 100 mg PO TID PRN spasm 3 days #10 03/21/21 (Pyridium) tabs sulfamethoxazole 800 1 tab PO BID 7 days #14 tabs 03/21/21 mg-trimethoprim 160 mg tablet (Bactrim DS) oxycodone 5 mg capsule 5 mg PO Q8H PRN pain #12 cap s 06/29/22 albuterol sulfate 90 mcg/actuation 2 puff inhalation Q ID PRN 10/06/23 aerosol inhaler (Ventolin HFA) shortness of breath or wheezing #6.7 grams doxycycline hyclate 100 mg capsule 100 mg PO BID 7 day s #14 caps 10/06/23 cefuroxime axetil 250 mg tablet 250 mg PO BID 7 days # 14 tabs 11/27/23 phenazopyridine 200 mg tablet 200 mg PO TID 2 days #6 tabs 11/27/23 (Pyridium) cefuroxime axetil 250 mg tablet 250 mg PO BID 7 days # 14 tabs 04/03/24 phenazopyridine 200 mg tablet 200 mg PO TID 2 days #6 tabs 04/03/24 (Pyridium) cefuroxime axetil 250 mg tablet 250 mg PO BID 7 days # 14 tabs 12/22/24 phenazopyridine 100 mg tablet 100 mg PO TID PRN pain 6 doses #6 12/22/24 (Pyridium) tabs Allergies Allergy/AdvReac Type Severity Reaction Status Date / Time Seasonal Allergies Allergy Mild Runny Verified 12/22/24 20:29 Nose, congestion Review of Systems Review of Systems: Yes all other systems are reviewed and are negative (As per HPI) [facility] Past Medical History Attestation statement: The following information was validated with the patient. [facility] Narrative: Hypertrophic cardiomyopathy, GERD Medical History Kidney stones Osteoarthritis Streptococcal bacteremia Hyperlipidemia GERD (gastroesophageal reflux disease) No known health problems Surgical History Hx of colonoscopy Family History Family History Father Diabetes Mother Diabetes Brother Diabetes Brother Diabetes Brother Diabetes Brother Diabetes Sister Diabetes Social History Social History Household Members: Spouse, Children and Other Alcohol intake: never Patient Tobacco Use Status: Never used Tobacco Substance Use Type: Marijuana Advance Directives: No Advance Directives Information Provided: Yes Physical Exam Vital Signs: Vital Signs: Last Vital Signs Temp 98.4 F 12/22/24 22:06 Pulse 65 12/22/24 22:06 Resp 17 12/22/24 22:06 BP 123/63 12/22/24 22:06 Pulse Ox 97 12/22/24 22:06 O2 Del Method Room Air 12/22/24 22:06 BMI result Body Mass Index 30.9 Constitutional: ?Well-appearing, no acute distress HEENT: ?No lymphadenopathy, neck is supple, trachea midline, PERRLA, EOMI, no nystagmus Chest: ?Equal rise, no crepitus, no deformities Respiratory: ?Lungs are clear to auscultation bilaterally, no wheezes/rales/rhonchi Cardio: ?Regular rate and rhythm, no murmurs rubs or gallops, peripheral pulses strong GI: ?Soft, nondistended, bilateral flanks are tender to percussion without rebound or guarding, quiet bowel sounds in all quadrants : Deferred Skin: ?Warm, dry, no rashes Musculoskeletal: ?No deformities, normal tone Neuro: ?Alert and oriented, cranial nerves 2-12 intact, equal strength and sensation in bilateral upper and lower extremities Psych: ?Normal affect, appropriate mood, no visual or auditory hallucinations Course Course Course Narrative: This is a RME preformed in triage by Krysta Arevalo PA-C. Date: 12/22/2024, time 827 pm. Patient presents with sxs. PMH sig for GERD, HLD and OA. Dysuria, urgency and frequency today. Has bladder pressure. No abd pain, upper back pain, n/v fevers or chills. No pelvic trauma, vaginal sxs or concern for STIs. She has had UTI in past this feels similiar to her. no recent UTIs. She would make an appointment with an outpatient clinic tomorrow but given severity of pain she did not want to wait and wanted to seek medical attention tonight. PE: obese, nonseptic appearing, no bladder or CVA tenderness Work UP: U/A only Will defer full ROS and PE to treating provider. Patient will continued to be monitored in the interim. Medications Administered Discontinued Medications Generic Name Dose Route Start Last Admin Trade Name Freq PRN Reason Stop Dose Admin Cephalexin HCl 500 mg 12/22/24 21:26 12/22/24 21:33 Cephalexin 500 Mg Capsule PO 12/22/24 21:27 500 mg ONCE ONE Administration Phenazopyridine HCl 200 mg 12/22/24 21:26 12/22/24 21:33 Phenazopyridine Hcl 200 Mg Tablet PO 12/22/24 21:27 200 mg ONCE ONE Administration Medical Decision Making Medical Decision Making MDM Narrative: 59-year-old female with history of frequent UTIs presenting with dysuria and suprapubic pain. Feels similar to previous UTIs. Differential diagnosis includes UTI, pyelonephritis, renal colic, kidney stones, other GI etiologies such as ovarian cysts, among many others. Urinalysis is consistent with UTI. Very low suspicion for pyelonephritis or kidney stone based on her symptoms and exam. Plan for antibiotics, Pyridium for pain, outpatient follow-up as needed. Discuss at length with the patient who agrees with plan. Discharged home in stable condition. Differential Diagnosis Differential Diagnoses: The differential diagnosis associated with the presentation includes (As above) Admission/Observation Consideration of admission/observation: Escalation of care including admission/observation considered Lab Data [facility] Lab Attestation statement: I reviewed the patient's lab results. Labs: Lab Results 12/22/24 Range/Units 20:59 Urine Color Yellow Urine Appearance Cloudy Urine pH 6.0 (5.0-9.0) Ur Specific [place] >= 1.030 H (1.005-1.025) Urine Protein 100 (2+) H (Neg-Trace) mg/dL Urine Glucose (UA) Negative (Negative) mg/dL Urine Ketones Trace (Negative) mg/dL Urine Blood Large (3+) H (Negative) Urine Nitrite Positive H (Negative) Ur Leukocyte Esterase Moderate (2+) H (Negative) Urine RBC >20 H (0-2) /HPF Urine WBC >50 H (0-5) /HPF Ur Squamous Epith Cells 0-2 (0-2) /HPF Urine Bacteria 4+ (None Seen) Hyaline Casts 3-5 (0-2) /LPF Nitrite and leukocyte esterase positive urine with greater than 50 whites, greater than 20 reds Prescription Management I considered prescription management with: Pain Medication and Antibiotic Chronic Conditions Patient?s care impacted by: Hypertension and Other (Hypertrophic cardiomyopathy) Discharge Plan Discharge Clinical Impression: UTI (urinary tract infection), uncomplicated Patient Disposition: Home, Self-Care Instructions: Urinary Tract Infection in Women (ED) Additional Instructions: Your urine appears to be infected. We will treat you with antibiotics (cefuroxime) and Pyridium for pain. Take your antibiotic as prescribed until the course is completed. Do not stop this medication early if you start to feel better. Return to the ER with any new or worsening symptoms including: worsening pain despite antibiotics, fevers greater than 100?, vomiting or inability to tolerate your antibiotic, any new symptom that concerns you. Call 911 with any medical emergency. Prescriptions: New cefuroxime axetil 250 mg tablet 250 mg PO BID 7 Days Qty: 14 0RF phenazopyridine [Pyridium] 100 mg tablet 100 mg PO TID PRN (Reason: pain) Qty: 6 0RF No Action ondansetron HCl [Zofran] 4 mg tablet 4 mg PO Q8H PRN (Reason: nausea and vomiting) Qty: 10 0RF hydrocodone-acetaminophen 5-325 mg tablet 1 tab PO Q4-6H PRN (Reason: pain) Qty: 12 0RF Rx Instructions: for 3 days sulfamethoxazole-trimethoprim [Bactrim DS] 800-160 mg tablet 1 tab PO BID 7 Days Qty: 14 0RF phenazopyridine [Pyridium] 100 mg tablet 100 mg PO TID PRN (Reason: spasm) 3 Days Qty: 10 0RF oxycodone 5 mg capsule 5 mg PO Q8H PRN (Reason: pain) Qty: 12 0RF Rx Instructions: Partial Fill upon patient request. albuterol sulfate [Ventolin HFA] 90 mcg/actuation HFA aerosol inhaler 2 puff inhalation QID PRN (Reason: shortness of breath or wheezing) Qty: 6.7 0RF doxycycline hyclate 100 mg capsule 100 mg PO BID 7 Days Qty: 14 0RF cefuroxime axetil 250 mg tablet 250 mg PO BID 7 Days Qty: 14 0RF phenazopyridine [Pyridium] 200 mg tablet 200 mg PO TID 2 Days Qty: 6 0RF cefuroxime axetil 250 mg tablet 250 mg PO BID 7 Days Qty: 14 0RF phenazopyridine [Pyridium] 200 mg tablet 200 mg PO TID 2 Days Qty: 6 0RF simvastatin 10 mg tablet 10 mg PO BEDTIME lisinopril 10 mg tablet 10 mg PO DAILY topiramate 100 mg capskyla,ER 24hr dose pack 100 mg PO DAILY aspirin 500 mg tablet 1,000 mg PO Q4-6H PRN Rx Instructions: do not exceed 4 doses per 24 hrs Interventions: ED Discharge Assessment Last Done: 12/22/24 22:06 Discharge Date/Time: 12/22/24 22:07 Print Language: Faroese
[2024-12-22 20:27] VITALS: BP 162/75; PULSE 75; RESP 16; TEMP 36.9; O2SAT 98; BMI 30.9
[2024-12-22 20:57] VITALS: BP 123/63; PULSE 65; RESP 17; TEMP 36.9; O2SAT 97
[2024-12-22 21:05] LABS: Appearance Urine Cloudy; Glucose Urine UA Negative (Negative); PH 6.0 (5.0-9.0); Specific Gravity - Urine >= 1.030 (1.005-1.025); UMIC TRIGGER UACC YES
[2024-12-22 21:07] LABS: UACC Culture Trigger YES
[2024-12-22 22:06] VITALS: BP 123/63; PULSE 65; RESP 17; TEMP 36.9; O2SAT 97
== END 2024-12-22 22:07 | disposition home or self-care (01) ==
PROVIDERS: Physician Assistant Medical; Emergency Provider Emergency Medicine; PCP Internal Medicine
DX: N39.0 Urinary tract infection, site not specified (principal); R10.9 Unspecified abdominal pain; R30.0 Dysuria; R35.0 Frequency of micturition; K21.9 Gastro-esophageal reflux disease without esophagitis
CPT/HCPCS: 81001; 87086; 87088; 87186; 99283